=== PATIENT | male | born 1955 | race Caucasian/White ===

== ENCOUNTER 2016-08-28 11:17 | Inpatient (IN) | payer BC ==
[~2016-08-28] VITALS: Ht 172.7 cm; Wt 69.3 kg
[2016-08-28] MEDS ORDERED: GASTROGRAFIN SOLUTION 30ML (Q9963) As Ordered ONE (12:12)
[2016-08-28 12:50] LABS: ALBUMIN 4.1 GM/DL (3.2-5.2); ALBUMIN/GLOBULIN RATIO 1.17 (1.00-1.93); ALKALINE PHOSPHATASE 75 U/L (45-117); ALT/SGPT 29 U/L (12-78); AMYLASE 41 U/L (25-115); ANION GAP 9 MEQ/L (8-16); AST/SGOT 18 U/L (15-37); BILIRUBIN,DIRECT < 0.1 MG/DL (0.0-0.2); BILIRUBIN,TOTAL 0.6 MG/DL (0.2-1.0); BLOOD UREA NITROGEN 19 MG/DL (7-18); CALCIUM LEVEL 9.2 MG/DL (8.5-10.1); CARBON DIOXIDE LEVEL 26 MEQ/L (21-32); CHLORIDE LEVEL 102 MEQ/L (98-107); CREATININE FOR GFR 1.09 MG/DL (0.55-1.02); GLOMERULAR FILTRATION RATE 54.7 (>51); GLUCOSE, FASTING 104 MG/DL (70-105); SODIUM LEVEL 137 MEQ/L (136-145); TOTAL PROTEIN 7.6 GM/DL (6.4-8.2)
[2016-08-28 12:51] LABS: BASO % 0.2 % (0.0-1.0); EOS % 0.1 % (0.0-3.0); LARGE UNSTAINED CELL # 0.1 K/mm3 (0.0-0.4); LARGE UNSTAINED CELL % 1.1 % (0.0-4.0); LYMPH # 1.2 K/mm3 (1.5-4.5); LYMPH % 10.7 % (24.0-44.0); MEAN CORPUSCULAR HEMOGLOBIN 32.4 pg (27.0-33.0); MEAN CORPUSCULAR HGB CONC 33.8 g/dl (32.0-36.5); MEAN CORPUSCULAR VOLUME 96.1 fl (80.0-96.0); MONO # 0.5 K/mm3 (0.0-0.8); MONO % 4.5 % (0.0-5.0); NEUTROPHILS # 9.4 K/mm3 (1.8-7.7); NEUTROPHILS % 83.4 % (36.0-66.0); PLATELET COUNT, AUTOMATED 254 k/mm3 (150-450); WHITE BLOOD COUNT 11.3 K/mm3 (4.0-10.0)
[2016-08-28] MEDS ORDERED: ISOVUE-370 76% 100ML VIAL (Q9967) As Ordered ONE (13:11)
--- NOTE | 2016-08-28 14:32 | REP ---
CT study of the abdomen and pelvis with IV and oral contrast: History: Abdominal pain. CT contrast dose: 100 mL of Isovue [address] findings: Digital boatbuilder supervisor radiograph demonstrates multiple dilated large and small bowel loops in the central abdomen. Axial CT images demonstrate that the lung bases are free of infiltrate. No pleural effusion is seen. There is however a small quantity of ascites visible in the perihepatic region and in the pelvic reflections. The liver and the spleen are normal in size and homogeneous in texture. Gallbladder is unremarkable. No pancreatic abnormality is appreciated. No visible adrenal lesion. Kidneys enhance symmetrically are morphologically intact. Normal caliber aorta is seen. There is diffuse dilation of the large and small intestine with a large quantity of low density stool throughout the large intestine including the descending colon distal to the rectosigmoid colon. In the rectosigmoid colon there is the suggestion of mural thickening and enhancement along with diverticulosis. This may reflect a diverticular or neoplastic stricture. Sigmoidoscopy versus limited barium enema should be considered. There is a distal left colonic obstructive pattern in the bowel gas. No free air is seen. No abscess is observed. No abdominal wall defect is seen. Bone window settings show no bony destructive lesion. Impression: Distal left colon obstruction pattern in the bowel gas. Minimal ascites. 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 Consider sigmoidoscopy versus limited barium enema. No evidence of free air or abscess. Signed by Roque Laird MD 08/28/2016 03:06 P
[2016-08-28] MEDS ORDERED: FLEET ENEMA PR SCH (15:45)
[2016-08-28] MEDS ORDERED: ONDANSETRON 4MG/2ML VIAL (J2405) IV PRN (15:45)
--- NOTE | 2016-08-28 17:08 | EDDOCDS ---
Nurse's Notes [facility] Name: Sylvain Moran Age: 61 yrs Sex: Female : 1955 Arrival Date: 08/28/2016 Time: 11:17 Bed I3 / M3 Private MD: ISABEL LOERA Diagnosis: Other intestinal obstruction-LEFT SIDED, WITH MALIGNANT VS DIVERTICULAR STRICTURE IN RECTOSIGMOID COLON;Other abdominal pain-LEFT SIDED Presentation: 08/28 11:26 Presenting complaint: Patient states: Having some lower abdominal pain intermittently x jo3 2 weeks. Anorexia and intermittent blood in stool. Adult Sepsis Screening: The patient does not have new or worsening altered mentation. Patient's respiratory rate is less than 22. Systolic blood pressure is greater than 100. Patient has a qSOFA score of 0- Negative Sepsis Screen. Suicide/Homicide risk assessment- the patient denies having any suicidal and/or homicidal ideations and does not present with any other emotional, behavioral or mental health complaints. Status: Patient is not a visitor services technician or dependent. Transition of care: patient was not received from another setting of care. 11:26 Acuity: ROSA Level 3 jo3 11:26 Method Of Arrival: Walkin/Carried/Asstd jo3 Triage Assessment: 11:31 General: Appears in no apparent distress, Behavior is appropriate for age, cooperative. jo3 HIV screening NA for this visit Offered previously. Historical: - Allergies: No known drug Allergies; - Home Meds: 1. none - PMHx: Some kind of bowel fistula; - PSHx: Colonoscopy; - Social history: Smoking status: Patient states former smoker of tobacco. No barriers to communication noted, The patient speaks fluent Bengali, Speaks appropriately for age. - Family history: Not pertinent. - : The pt / caregiver states he / she is not on anticoagulants. Home medication list is obtained from the patient. - Exposure Risk Screening:: None identified. Screenin:20 Screening information is obtained from the patient. Fall risk: No risks identified. mcp Assistance ADL's: requires no assistance with activities of daily living. Abuse/DV Screen: The patient / caregiver reports he/she is: not in a situation that causes fear, pain or injury. Nutritional screening: No deficits noted. Advance Directives: There is no active DNR order. home support is adequate. Assessment: 12:20 General: Appears in no apparent distress, Behavior is cooperative. Pain: Location: mcp right lower quadrant and left lower quadrant Pain currently is 5 out of 10 on a pain scale. Neurological: No deficits noted. Respiratory: Airway is patent Respiratory effort is even, unlabored. GI: Abdomen is non- distended Bowel sounds present X 4 quads. Abd is soft X 4 quads. Derm: Skin is pink, warm & dry. 13:10 General: Appears in no apparent distress, Behavior is cooperative. Neurological: No mcp deficits noted. Respiratory: Airway is patent Respiratory effort is even, unlabored. Derm: Skin is pink, warm & dry. 14:03 General: Appears in no apparent distress, ambulated to CT scan and returned , appears mk4 in NAD. Derm: Skin is intact, Skin is pink, warm & dry. 15:30 General: Appears in no apparent distress, DR DASILVA IN [facility] pt. Neurological: mk4 Level of Consciousness is awake, alert, Oriented to person, place, time. GI: Abdomen is non- distended. 16:59 General: Appears in no apparent distress, comfortable, Behavior is cooperative. mcp Neurological: No deficits noted. Respiratory: Airway is patent Respiratory effort is even, unlabored. GI: Abdomen is non- distended Abd is soft X 4 quads. Derm: Skin is pink, warm & dry. Vital Signs: 11:21 BP 137 / 80; Pulse 79; Resp 18; Temp 98.9(O); Pulse Ox 98% on R/A; Weight 64.41 kg (R); elp Height 5 ft. 8 in. (172.72 cm) (R); Pain 4/10; 13:25 BP 153 / 88; Pulse 53; Resp 18; Temp 96.6(O); Pulse Ox 100% on R/A; Pain 3/10; jml1 16:12 BP 141 / 92; Pulse 71; Resp 18; Temp 97.7(TE); Pulse Ox 97% on R/A; Pain 3/10; jml1 11:21 Body Mass Index 21.59 (64.41 kg, 172.72 cm) [facility] Vitals: 11:21 Log In Time: August 28, 2016 at 11:11. [facility] ED Course: 11:18 Patient visited by Shirin Martines PCA. [facility] 11:18 Patient moved to Waiting elp 11:19 ISABEL LOERA is Private Physician. elp 11:22 Patient visited by Shirin Martines PCA. elp 11:22 Patient moved to Pre RCE elp 11:29 Triage Initiated jo3 11:31 Patient visited by Marina Finnegan,ZAK. jo3 11:32 Patient moved to Triage 1 jo3 11:43 [facility] dt4 11:43 Keisha Waller MD is Attending Physician. dt4 11:43 Patient visited by Loretta Pereira PA-C. dt4 12:05 Patient moved to I3 / M3 kcs 12:15 Inserted saline lock: 20 gauge in left antecubital area and blood collected. The mcp patient tolerated the procedure well. Labs drawn. (by ED staff). Sent per order to lab. 12:18 Patient visited by Yulisa Acosta RN. mk4 12:18 Amylase Sent. mk4 12:18 Basic Metabolic Profile Sent. mk4 12:18 CBC with Diff Sent. mk4 12:18 Lipase Sent. mk4 12:18 Liver Profile Sent. mk4 12:21 Patient visited by Chel Jane RN. mcp 12:21 The patient / caregiver is instructed regarding the plan of care and ED course. Patient mcp has correct armband on for positive identification. Placed in gown. Bed in low position. Call light in reach. 12:52 Urinalysis Sent. mcp 12:52 Urine Culture Sent. mcp 12:59 Patient visited by Yulisa Acosta RN. mk4 13:25 Patient visited by Howard Clark. jml1 14:03 Patient visited by Yulisa Acosta RN. mk4 14:35 Patient visited by Yulisa Acosta RN. mk4 14:56 CT ABD & PELVIS: IV and Oral Contrast Returned. EDMS 15:09 Patient visited by Yulisa Acosta RN. mk4 15:10 Patient visited by Chel Jane RN. mcp 15:30 Elver Emmanuel MD is Hospitalizing Provider. dt4 16:12 Patient visited by Howard Clark. jml1 16:25 [facility] Payment Agreement was scanned into [employer] and attached to record. gjb 16:59 No procedures done that require assistance. mcp Administered Medications: 12:18 Drug: NS 0.9% 1000 ml [sodium chloride 0.9 % intravenous solution] Route: IV; Rate: mk4 bolus; Site: left antecubital; 12:18 Drug: Diatrizoate Meglumine & Sodium 10 ml [diatrizoate meglumine and diat.sodium 66 mcp %-10 % oral solution (10 mL)] Route: PO; 12:52 Drug: Diatrizoate Meglumine & Sodium 10 ml [diatrizoate meglumine and diat.sodium 66 mcp %-10 % oral solution (10 mL)] Route: PO; Order Results: Lab Order: Amylase; SPEC'M 08/28/16 12:08 Test: AMYLASE; Value: 41; Range: 25-115; Units: U/L; Status: F Lab Order: Basic Metabolic Profile; SPEC'08/28/16 12:08 Test: GLUCOSE, FASTING; Value: 104; Range: 70-105; Units: MG/DL; Status: F Test: BLOOD UREA NITROGEN; Value: 19; Range: 7-18; Abnormal: Above high normal; Units: MG/DL; Status: F Test: CREATININE FOR GFR; Value: 1.09; Range: 0.55-1.02; Abnormal: Above high normal; Units: MG/DL; Status: F Test: GLOMERULAR FILTRATION RATE; Value: 54.7; Range: >51; Status: F Test: SODIUM LEVEL; Value: 137; Range: 136-145; Units: MEQ/L; Status: F Test: POTASSIUM SERUM; Value: 4.0; Range: 3.5-5.1; Units: MEQ/L; Status: F Test: CHLORIDE LEVEL; Value: 102; Range: 98-107; Units: MEQ/L; Status: F Test: CARBON DIOXIDE LEVEL; Value: 26; Range: 21-32; Units: MEQ/L; Status: F Test: ANION GAP; Value: 9; Range: 8-16; Units: MEQ/L; Status: F Test: CALCIUM LEVEL; Value: 9.2; Range: 8.5-10.1; Units: MG/DL; Status: F Test Note: ; Units are mL/min/1.73 m2 Chronic Kidney Disease Staging per NKF: Stage I & II GFR >=60 Normal to Mildly Decreased Stage III GFR 30-59 Moderately Decreased Stage IV GFR 15-29 Severely Decreased Stage V GFR <15 Very Little GFR Left ESRD GFR <15 on TRACK REPAIRER HELPER Lab Order: CBC with Diff; SPEC'M 08/28/16 12:08 Test: WHITE BLOOD COUNT; Value: 11.3; Range: 4.0-10.0; Abnormal: Above high normal; Units: K/mm3; Status: F Test: RED BLOOD COUNT; Value: 4.71; Range: 4.00-5.40; Units: M/mm3; Status: F Test: HEMOGLOBIN; Value: 15.3; Range: 12.0-16.0; Units: g/dl; Status: F Test: HEMATOCRIT; Value: 45.3; Range: 36.0-47.0; Units: %; Status: F Test: MEAN CORPUSCULAR VOLUME; Value: 96.1; Range: 80.0-96.0; Abnormal: Above high normal; Units: fl; Status: F Test: MEAN CORPUSCULAR HEMOGLOBIN; Value: 32.4; Range: 27.0-33.0; Units: pg; Status: F Test: MEAN CORPUSCULAR HGB CONC; Value: 33.8; Range: 32.0-36.5; Units: g/dl; Status: F Test: RED CELL DISTRIBUTION WIDTH; Value: 12.0; Range: 11.5-14.5; Units: %; Status: F Test: PLATELET COUNT, AUTOMATED; Value: 254; Range: 150-450; Units: k/mm3; Status: F Test: NEUTROPHILS %; Value: 83.4; Range: 36.0-66.0; Abnormal: Above high normal; Units: %; Status: F Test: LYMPH %; Value: 10.7; Range: 24.0-44.0; Abnormal: Below low normal; Units: %; Status: F Test: MONO %; Value: 4.5; Range: 0.0-5.0; Units: %; Status: F Test: EOS %; Value: 0.1; Range: 0.0-3.0; Units: %; Status: F Test: BASO %; Value: 0.2; Range: 0.0-1.0; Units: %; Status: F Test: LARGE UNSTAINED CELL %; Value: 1.1; Range: 0.0-4.0; Units: %; Status: F Test: NEUTROPHILS #; Value: 9.4; Range: 1.8-7.7; Abnormal: Above high normal; Units: K/mm3; Status: F Test: LYMPH #; Value: 1.2; Range: 1.5-4.5; Abnormal: Below low normal; Units: K/mm3; Status: F Test: MONO #; Value: 0.5; Range: 0.0-0.8; Units: K/mm3; Status: F Test: EOS #; Value: 0.0; Range: 0.0-0.50; Units: K/mm3; Status: F Test: BASO #; Value: 0.0; Range: 0.0-0.2; Units: K/mm3; Status: F Test: LARGE UNSTAINED CELL #; Value: 0.1; Range: 0.0-0.4; Units: K/mm3; Status: F Lab Order: Lipase; [facility] 08/28/16 12:08 Test: LIPASE; Value: 104; Range: 73-393; Units: U/L; Status: F Lab Order: Liver Profile; [facility] 08/28/16 12:08 Test: AST/SGOT; Value: 18; Range: 15-37; Units: U/L; Status: F Test: ALT/SGPT; Value: 29; Range: 12-78; Units: U/L; Status: F Test: ALKALINE PHOSPHATASE; Value: 75; Range: 45-117; Units: U/L; Status: F Test: BILIRUBIN,TOTAL; Value: 0.6; Range: 0.2-1.0; Units: MG/DL; Status: F Test: BILIRUBIN,DIRECT; Value: < 0.1; Range: 0.0-0.2; Units: MG/DL; Status: F Test: TOTAL PROTEIN; Value: 7.6; Range: 6.4-8.2; Units: GM/DL; Status: F Test: ALBUMIN; Value: 4.1; Range: 3.2-5.2; Units: GM/DL; Status: F Test: ALBUMIN/GLOBULIN RATIO; Value: 1.17; Range: 1.00-1.93; Status: F Lab Order: Urinalysis; SPEC'M 08/28/16 12:08 Test: APPEARANCE, URINE; Value: HAZY; Range: CLEAR; Status: F Test: COLOR, URINE; Value: YELLOW; Range: YELLOW; Status: F Test: PH,URINE; Value: 5.0; Range: 5.0-9.0; Units: UNITS; Status: F Test: SPECIFIC GRAVITY URINE AUTO; Value: 1.029; Range: 1.002-1.035; Status: F Test: PROTEIN, URINE AUTO; Value: 1+; Range: NEGATIVE; Abnormal: Above high normal; Units: mg/dL; Status: F Test: GLUCOSE, URINE (UA) AUTO; Value: NEGATIVE; Range: NEGATIVE; Units: mg/dL; Status: F Test: KETONE, URINE AUTO; Value: 2+; Range: NEGATIVE; Abnormal: Above high normal; Units: mg/dL; Status: F Test: UROBILINOGEN, URINE AUTO; Value: 2.0; Range: 0.0-2.0; Abnormal: Above high normal; Units: mg/dL; Status: F Test: BILIRUBIN, URINE AUTO; Value: NEGATIVE; Range: NEGATIVE; Status: F Test: NITRITE, URINE AUTO; Value: NEGATIVE; Range: NEGATIVE; Status: F Test: LEUKOCYTE ESTERASE, URINE AUTO; Value: NEGATIVE; Range: NEGATIVE; Status: F Test: BLOOD, URINE BLOOD; Value: NEGATIVE; Range: NEGATIVE; Status: F Test: WBC, URINE AUTO; Value: 1; Range: 0-3; Units: /HPF; Status: F Test: RBC, URINE AUTO; Value: 6; Range: 0-3; Abnormal: Above high normal; Units: /HPF; Status: F Test: BACTERIA, URINE AUTO; Value: NEGATIVE; Range: NEGATIVE; Status: F Test: SQUAMOUS EPITHELIAL CELL UR AU; Value: 0; Range: 0-6; Units: /HPF; Status: F Test: MUCUS, URINE; Value: SMALL; Range: NEGATIVE; Status: F Test: HYALINE CAST, URINE AUTO; Value: 1; Range: 0-1; Units: /LPF; Status: F Lab Order: CRP; SPEC'M 08/28/16 12:08 Test: C REACTIVE PROTEIN QUANTITATIV; Value: 0.51; Range: 0.00-0.30; Abnormal: Above high normal; Units: MG/DL; Status: F Radiology Order: CT ABD & PELVIS: IV and Oral Contrast Test: CT ABD & PELVIS: IV and Oral Contrast REASON FOR EXAMINATION: Abdomen Pain; CT study of the abdomen and pelvis with IV and oral contrast:; ; History: Abdominal pain.; ; CT contrast dose: 100 mL of Isovue 370 is administered intravenously.; ; CT findings: Digital hand lens polisher radiograph demonstrates multiple dilated large and; small bowel loops in the central abdomen. Axial CT images demonstrate that the; lung bases are free of infiltrate. No pleural effusion is seen. There is; however a small quantity of ascites visible in the perihepatic region and in the; pelvic reflections.; ; The liver and the spleen are normal in size and homogeneous in texture.; Gallbladder is unremarkable. No pancreatic abnormality is appreciated. No; visible adrenal lesion. Kidneys enhance symmetrically are morphologically; intact. Normal caliber aorta is seen.; ; There is diffuse dilation of the large and small intestine with a large quantity; of low density stool throughout the large intestine including the descending; colon distal to the rectosigmoid colon. In the rectosigmoid colon there is the; suggestion of mural thickening and enhancement along with diverticulosis. This; may reflect a diverticular or neoplastic stricture. Sigmoidoscopy versus limited; barium enema should be considered. There is a distal left colonic obstructive; pattern in the bowel gas. No free air is seen. No abscess is observed. No; abdominal wall defect is seen. Bone window settings show no bony destructive; lesion.; ; Impression:; ; Distal left colon obstruction pattern in the bowel gas. Minimal ascites.; Malignant versus diverticular stricture rectosigmoid colon. Consider; sigmoidoscopy versus limited barium enema. No evidence of free air or abscess.; ; ; Signed by; Roque Laird MD 08/28/2016 03:06 P; Outcome: 15:32 Decision to Hospitalize by Provider. dt4 16:59 Discharge Assessment: patient administered narcotics - no. The following High Risk [facility] Discharge criteria are identified: None. Admitted to Med/Surg accompanied by tech, via wheelchair, with chart. Condition: stable. CT Study completed. Property :Personal belongings accompany Pt. 17:07 Patient left the ED. [facility] Signatures: Dispatcher [facility] Abbey Dent RN RN kcs Peters, Mary, RN RN [facility] Marina Finnegan RN RN jo3 Howard Clark [email or web address] Shirin Martines, FUNERAL LIMOUSINE DRIVER FUNERAL LIMOUSINE DRIVER mehulp Yulisa Acosta RN RN mk4 Loretta Pereira, NAOMY PAJoseluis [email or web address] Zuleika Gerber Corrections: (The following items were deleted from the chart) : General: Appears in no apparent distress, comfortable, Behavior is appropriate jo3 for age, cooperative, jo3 : Neurological: Level of Consciousness is awake, alert, Oriented to person, place, jo3 time, jo3 : Respiratory: Airway is patent Respiratory effort is even, unlabored, jo3 jo3 : Derm: Skin is pink, warm & dry. jo3 jo3 MTDD
--- NOTE | 2016-08-28 17:08 | EDDOCDS ---
Physician Documentation [facility] Name: Sylvain Moran Age: 61 yrs Sex: Female : 1955 Arrival Date: 08/28/2016 Time: 11:17 Bed I3 / M3 Private MD: ISABEL LOERA Disposition: 08/28/16 15:32 Hospitalization ordered by Elver Emmanuel for Inpatient Admission. 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 - Bed requested for 4 [place]. - Status is Inpatient Admission. mcp - Condition is Stable. - Problem is new. - Symptoms are unchanged. Historical: - Allergies: No known drug Allergies; - Home Meds: 1. none - PMHx: Some kind of bowel fistula; - PSHx: Colonoscopy; - Social history: Smoking status: Patient states former smoker of tobacco. No barriers to communication noted, The patient speaks fluent Norwegian, Speaks appropriately for age. - Family history: Not pertinent. - : The pt / caregiver states he / she is not on anticoagulants. Home medication list is obtained from the patient. - Exposure Risk Screening:: None identified. Vital Signs: 08/28 11:21 BP 137 / 80; Pulse 79; Resp 18; Temp 98.9(O); Pulse Ox 98% on R/A; Weight 64.41 kg / elp 142 lbs (R); Height 5 ft. 8 in. (172.72 cm) (R); Pain 4/10; 13:25 BP 153 / 88; Pulse 53; Resp 18; Temp 96.6(O); Pulse Ox 100% on R/A; Pain 3/10; jml1 16:12 BP 141 / 92; Pulse 71; Resp 18; Temp 97.7(TE); Pulse Ox 97% on R/A; Pain 3/10; jml1 11:21 Body Mass Index 21.59 (64.41 kg, 172.72 cm) elp MDM: 12:03 NS 0.9% 1000 ml IV at bolus once ordered. dt4 12:03 IV Saline Lock ordered. dt4 12:03 Undress patient appropriately for examination ordered. dt4 12:04 CT ABD & PELVIS: IV and Oral Contrast Ordered. EDMS 12:04 Amylase Ordered. EDMS 12:04 Basic Metabolic Profile Ordered. EDMS 12:04 CBC with Diff Ordered. EDMS 12:04 Lipase Ordered. EDMS 12:04 Liver Profile Ordered. EDMS 12:04 Urinalysis Ordered. EDMS 12:04 CRP Ordered. EDMS 12:04 Urine Culture Ordered. EDMS 12:05 NOTHING BY MOUTH+DIET ordered. EDMS 12:17 Diatrizoate Meglumine & Sodium Liquid 10 ml PO once; mix in 290cc of water ordered. mcp 12:17 Diatrizoate Meglumine & Sodium Liquid 10 ml PO once; mix in 290cc of water ordered. [facility] 14:44 BED REQUEST+ADM ordered. EDMS 15:53 Barium Enema Ordered. EDMS 15:53 Admission / Observation Status ordered. EDMS 15:54 NPO DIET ordered. EDMS 16:25 [facility] Payment Agreement was scanned into [employer] and attached to record. [facility] 16:25 Financial registration complete. gjb Administered Medications: 12:18 Drug: NS 0.9% 1000 ml [sodium chloride 0.9 % intravenous solution] Route: IV; Rate: mk4 bolus; Site: left antecubital; 12:18 Drug: Diatrizoate Meglumine & Sodium 10 ml [diatrizoate meglumine and diat.sodium 66 mcp %-10 % oral solution (10 mL)] Route: PO; 12:52 Drug: Diatrizoate Meglumine & Sodium 10 ml [diatrizoate meglumine and diat.sodium 66 mcp %-10 % oral solution (10 mL)] Route: PO; Signatures: Dispatcher [facility] Chel Jane RN Marina Ceballos mcp, RN RN jo3 Loretta Pereira, PA-C PA-C [email or web address] Sean Tidwell RN RN mts Beck, Gabriela gjb King, Margaret RN mk4 The chart was reviewed and I authenticate all verbal orders and agree with the evaluation and treatment provided.Attachments: 16:25 [facility] Payment Agreement gj MTDD
[2016-08-28 17:15] VITALS: BP 158/78
[2016-08-28] MEDS: LR 1,000 ML IV SCH (17:45)
[2016-08-28] MEDS: CIPROFLOXACIN 400 MG in APPROPRIATE DILUENT 1 EA IV SCH (17:46)
[2016-08-28] MEDS: MORPHINE 4 MG/ML 1ML SYRINGE IV PRN (17:47)
--- NOTE | 2016-08-28 17:50 | HPE ---
DATE OF ADMISSION: 08/28/2016 CHIEF COMPLAINT: Abdominal pain, abdominal fullness. HISTORY OF PRESENT ILLNESS: Mr. Moran is a 61-year-old gentleman who has recently transferred here, taking care of his mom. He originally lives by the [facility]. He reports a 1 week episode of abdominal fullness, no appetite, crampy abdominal pain centered periumbilically and supraumbilically going towards his pelvis. He is not really complaining of nausea though he does not feel like eating because of the cramps and the abdominal fullness. Reports feeling dehydrated and having lost about 3 pounds in a week's time due to not being able to eat or drink. He tells me that his father has Crohn's disease. When he was 44 he was having some abdominal cramping as well as occasional bloody stools which he reports finding in the toilet paper. He had a colonoscopy but was not able to be completed due to possible stricture. This was not followed up. In 2012 he saw a death claim clerk for similar symptoms. He told them about that episode. They did a barium enema and a possible stricture or fistula was discussed. He was advised surgery at that time but since he was not really that symptomatic he did not go through with that. For the past couple weeks he was having problems, he contacted his primary care doctor, likewise his death claim clerk, and referred him to a surgeon in [place] and he is actually scheduled to see him on 09/09/2016. He came here trying to take care of his mom, who is sick, when his symptoms worsened. ALLERGIES: No reported drug allergies. HOME MEDICATIONS: None. PAST MEDICAL HISTORY: As mentioned in history of present illness (HPI). No chronic medical problems. PAST SURGICAL HISTORY: Of only a colonoscopy and left inguinal hernia repair. SOCIAL HISTORY: Light cigarette smoker, about six a day, non-filtered. He has decided to stop last week when his symptoms were worsening and he vows to continue to stop smoking. He has only occasional alcohol intake, mostly wine. Denies recreational drug use. FAMILY HISTORY: As mentioned, Crohn's disease. No history of colorectal malignancy. EXPOSURE HISTORY: None. No sick exposure. REVIEW OF SYSTEMS: The patient otherwise healthy. Denies any fevers or chills. Denies any intermittent or chronic headaches, seizures, stroke. The patient denies any significant chest discomfort and effort, paroxysmal nocturnal dyspnea, orthopnea. Denies any chronic cough or colds, shortness of breath on effort. Gastrointestinal symptoms enumerated in the HPI. Denies dysuria, hematuria, nocturia. The patient denies any polydipsia, polyphagia or polyuria. Denies any history of diabetes or other endocrine problems. Denies any bleeding or clotting disorder. Denies any severe psychiatric impairment. The patient reports healthy and active, runs three miles a day, does yoga 5 days a week. His vital signs on arrival in the emergency department (ED), blood pressure of 137/80, pulse rate of 79, respiratory of 18, temperature of 98.9, pulse oximetry 98% on room air. Weight 64 kg, height 172 cm, pain rated as 4/10 on arrival, BMI is 21.59. EXAMINATION: The patient is seen, fairly well built person, does not seem to be chronically ill. Has some mild discomfort but still able to move around comfortably. Burps here and there and stops talking due to most possible waves of nausea. Skin is warm and dry. Normocephalic, atraumatic. Has pink palpebral conjunctivae. Anicteric sclerae. Lips appear dry. Neck is supple. No thyromegaly. No lymphadenopathy. No chest wall abnormalities. Lung sounds clear to auscultation bilaterally, no wheezing appreciated. Heart rate and rhythm are regular with no murmurs. Lungs are clear to auscultation bilaterally. No wheezing appreciated. Abdominal exam shows moderate amount of distension, tympanitic to percussion. No umbilical or herniations appreciated from the left groin scar. No surgical scar noted. No hepatosplenomegaly. Minimally tender on palpation, mainly in the suprapubic area. No rebound or guarding. Extremities show no deformities, edema, or cyanosis. LABORATORY DATA: White cell count 11.3, hemoglobin 15.3, hematocrit 45.3, platelet count is 254, neutrophils are 83%. Chemistry: Sodium 137, potassium 4.0, chloride is 102, CO2 is 26, BUN of 19, creatinine is 1.09, calcium 10.2. LFTs are all normal. AST is 18, ALT of 29, albumin 4.1, amylase of 41, lipase of 104. Urinalysis essentially negative except for urine ketones 2+, and urine protein 1+. IMAGING STUDIES: Contrast CT of the abdomen and pelvis shows distal left colon obstruction pattern in the bowel gas, minimal ascites, malignant versus diverticular stricture in rectosigmoid colon. No evidence of free air or abscess. IMPRESSION: Left colon obstruction, seems to be chronic and progressive, either from inflammation, i.e., Crohn's disease, infection, diverticular disease or malignancy. The patient will be admitted in the hospital. He seems to be a little dehydrated. He has got some mildly elevated BUN and creatinine. Will continue IV fluid hydration of lactated Ringer's at 150 mL/hour. I will put him on Cipro and Flagyl for possible diverticulitis, though this seems to be a more chronic diverticular process. He does not look septic to suggest any active diverticulitis. We will set him up for a limited barium enema tomorrow to define the area of stricture. I discussed with him his options which includes possible colonoscopy with stenting to relieve the obstruction and get him ready for bowel preparation for surgery, colostomy and workup, which may include colonoscopy and later on interval surgery, or doing the resection right now with an end colostomy. After full discussion, we agreed on performing a barium enema tomorrow, possibly doing the colostomy to improve the blockage and work him up for the etiology of the blockage and eventually performing interval resection. All his questions were addressed at this time. The patient is in agreement with our plan of therapy.
[2016-08-28] MEDS: metroNIDAZOLE 500 MG in APPROPRIATE DILUENT 1 EA IV SCH (20:11)
[2016-08-28] MEDS: PERCOCET 5MG/325MG TAB PO PRN (20:41)
[2016-08-28 21:10] VITALS: BP 117/83
[2016-08-29] MEDS: LR 1,000 ML IV SCH ×4 (01:15→18:24)
[2016-08-29] MEDS: metroNIDAZOLE 500 MG in APPROPRIATE DILUENT 1 EA IV SCH ×3 (03:56→19:43)
[2016-08-29] MEDS: PERCOCET 5MG/325MG TAB PO PRN ×3 (04:05→17:56)
[2016-08-29 05:05] VITALS: BP 126/71
[2016-08-29] MEDS: CIPROFLOXACIN 400 MG in APPROPRIATE DILUENT 1 EA IV SCH ×2 (05:43→17:07)
[2016-08-29 06:30] LABS: BASO % 0.4 % (0.0-1.0); EOS # 0.1 K/mm3 (0.0-0.50); EOS % 1.6 % (0.0-3.0); LARGE UNSTAINED CELL # 0.2 K/mm3 (0.0-0.4); LARGE UNSTAINED CELL % 2.4 % (0.0-4.0); LYMPH # 2.1 K/mm3 (1.5-4.5); LYMPH % 24.2 % (24.0-44.0); MEAN CORPUSCULAR HEMOGLOBIN 32.4 pg (27.0-33.0); MEAN CORPUSCULAR HGB CONC 33.4 g/dl (32.0-36.5); MEAN CORPUSCULAR VOLUME 96.9 fl (80.0-96.0); MONO # 0.4 K/mm3 (0.0-0.8); MONO % 4.6 % (0.0-5.0); NEUTROPHILS # 5.8 K/mm3 (1.8-7.7); PLATELET COUNT, AUTOMATED 196 k/mm3 (150-450); RED CELL DISTRIBUTION WIDTH 12.2 % (11.5-14.5); WHITE BLOOD COUNT 8.7 K/mm3 (4.0-10.0)
[2016-08-29 06:44] LABS: ANION GAP 7 MEQ/L (8-16); BLOOD UREA NITROGEN 17 MG/DL (7-18); CALCIUM LEVEL 8.2 MG/DL (8.5-10.1); CARBON DIOXIDE LEVEL 29 MEQ/L (21-32); CHLORIDE LEVEL 105 MEQ/L (98-107); CREATININE FOR GFR 1.04 MG/DL (0.70-1.30); GLOMERULAR FILTRATION RATE > 60.0 (>56); GLUCOSE, FASTING 87 MG/DL (70-105); POTASSIUM SERUM 4.5 MEQ/L (3.5-5.1); SODIUM LEVEL 141 MEQ/L (136-145)
[2016-08-29] MEDS: PANTOPRAZOLE 40MG INJ (PROTONIX) (C9113) IV SCH (08:54)
[2016-08-29] MEDS: ENOXAPARIN 40 MG/0.4 ML SYRINGE (J1650) SC SCH (08:54)
[2016-08-29] MEDS ORDERED: GASTROGRAFIN SOLUTION 30ML (Q9963) As Ordered ONE ×2 (11:34)
--- NOTE | 2016-08-29 13:26 | REP ---
GASTROGRAFIN ENEMA: The procedure was performed under the personal supervision of Dr. Laird. The images were reviewed with Dr. Laird. A 50/50 solution of Gastrografin and water was instilled in the colon in a retrograde flow. In the sigmoid colon there is a 3.7 cm napkin ring lesion consistent with malignancy. There is obstruction proximal to the lesion. IMPRESSION: In the sigmoid colon there is a 3.7 cm napkin ring lesion consistent with malignancy. There is obstruction proximal to the lesion. 1 minute and 53 seconds of fluoroscopy time was utilized for this procedure. Reviewed by SYED Shirley 08/29/2016 01:50 PEdited and Signed by Roque Laird MD 08/29/2016 07:22 P
[2016-08-29 14:00] VITALS: BP 133/64
[2016-08-29] MEDS: MORPHINE 4 MG/ML 1ML SYRINGE IV PRN (15:51)
[2016-08-29 22:00] VITALS: BP 155/86
[2016-08-30] MEDS: LR 1,000 ML IV SCH ×4 (01:04→22:43)
[2016-08-30] MEDS: PERCOCET 5MG/325MG TAB PO PRN ×3 (01:51→19:55)
[2016-08-30] MEDS: metroNIDAZOLE 500 MG in APPROPRIATE DILUENT 1 EA IV SCH ×3 (03:16→19:50)
[2016-08-30] MEDS: CIPROFLOXACIN 400 MG in APPROPRIATE DILUENT 1 EA IV SCH ×2 (05:00→17:07)
[2016-08-30 06:00] VITALS: BP 126/78
[2016-08-30 06:01] LABS: BASO % 0.4 % (0.0-1.0); EOS # 0.1 K/mm3 (0.0-0.50); EOS % 1.9 % (0.0-3.0); LARGE UNSTAINED CELL # 0.2 K/mm3 (0.0-0.4); LARGE UNSTAINED CELL % 2.6 % (0.0-4.0); LYMPH # 1.7 K/mm3 (1.5-4.5); LYMPH % 24.1 % (24.0-44.0); MEAN CORPUSCULAR HEMOGLOBIN 32.1 pg (27.0-33.0); MEAN CORPUSCULAR HGB CONC 32.2 g/dl (32.0-36.5); MEAN CORPUSCULAR VOLUME 99.8 fl (80.0-96.0); MONO # 0.4 K/mm3 (0.0-0.8); MONO % 5.8 % (0.0-5.0); NEUTROPHILS # 4.6 K/mm3 (1.8-7.7); NEUTROPHILS % 65.2 % (36.0-66.0); PLATELET COUNT, AUTOMATED 187 k/mm3 (150-450); RED CELL DISTRIBUTION WIDTH 12.2 % (11.5-14.5)
[2016-08-30 06:21] LABS: ANION GAP 10 MEQ/L (8-16); BLOOD UREA NITROGEN 15 MG/DL (7-18); CALCIUM LEVEL 8.4 MG/DL (8.5-10.1); CARBON DIOXIDE LEVEL 29 MEQ/L (21-32); CHLORIDE LEVEL 100 MEQ/L (98-107); CREATININE FOR GFR 0.99 MG/DL (0.70-1.30); GLOMERULAR FILTRATION RATE > 60.0 (>56); GLUCOSE, FASTING 74 MG/DL (70-105); POTASSIUM SERUM 3.9 MEQ/L (3.5-5.1); SODIUM LEVEL 139 MEQ/L (136-145)
[2016-08-30] MEDS: ENOXAPARIN 40 MG/0.4 ML SYRINGE (J1650) SC SCH (08:29)
[2016-08-30] MEDS: PANTOPRAZOLE 40MG INJ (PROTONIX) (C9113) IV SCH (08:29)
[2016-08-30] MEDS: FLEET ENEMA PR SCH ×2 (11:06→20:39)
[2016-08-30 14:00] VITALS: BP 127/69
--- NOTE | 2016-08-30 18:08 | EDDOCDS ---
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 Anorexia and intermittent blood in stool. Adult Sepsis Screening: The patient does not have new or worsening altered mentation. Patient's respiratory rate is less than 22. Systolic blood pressure is greater than 100. Patient has a qSOFA score of 0- Negative Sepsis Screen. Suicide/Homicide risk assessment- the patient denies having any suicidal and/or homicidal ideations and does not present with any other emotional, behavioral or mental health complaints. 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 Transition of care: patient was not received from another setting of care. 11:26 Acuity: ROSA Level 3 jo3 11:26 Method Of Arrival: Walkin/Carried/Asstd jo3 Triage Assessment: 11:31 General: Appears in no apparent distress, Behavior is appropriate for age, cooperative. jo3 HIV screening NA for this visit Offered previously. Historical: - Allergies: No known drug Allergies; - Home Meds: 1. none - PMHx: Some kind of bowel fistula; - PSHx: Colonoscopy; - Social history: Smoking status: Patient states former smoker of tobacco. No barriers to communication noted, The patient speaks fluent Danish, Speaks appropriately for age. - Family history: Not pertinent. - : The pt / caregiver states he / she is not on anticoagulants. Home medication list is obtained from the patient. - Exposure Risk Screening:: None identified. Screenin:20 Screening information is obtained from the patient. Fall risk: No risks identified. mcp Assistance ADL's: requires no assistance with activities of daily living. Abuse/DV Screen: The patient / caregiver reports he/she is: not in a situation that causes fear, pain or injury. Nutritional screening: No deficits noted. Advance Directives: There is no active DNR order. home support is adequate. Assessment: 12:20 General: Appears in no apparent distress, Behavior is cooperative. Pain: Location: mcp right lower quadrant and left lower quadrant Pain currently is 5 out of 10 on a pain scale. Neurological: No deficits noted. Respiratory: Airway is patent Respiratory effort is even, unlabored. GI: Abdomen is non- distended Bowel sounds present X 4 quads. Abd is soft X 4 quads. Derm: Skin is pink, warm & dry. 13:10 General: Appears in no apparent distress, Behavior is cooperative. Neurological: No mcp deficits noted. Respiratory: Airway is patent Respiratory effort is even, unlabored. Derm: Skin is pink, warm & dry. 14:03 General: Appears in no apparent distress, ambulated to CT scan and returned , appears mk4 in NAD. Derm: Skin is intact, Skin is pink, warm & dry. 15:30 General: Appears in no apparent distress, DR DASILVA [facility] pt. Neurological: mk4 Level of Consciousness is awake, alert, Oriented to person, place, time. GI: Abdomen is non- distended. 16:59 General: Appears in no apparent distress, comfortable, Behavior is cooperative. mcp Neurological: No deficits noted. Respiratory: Airway is patent Respiratory effort is even, unlabored. GI: Abdomen is non- distended Abd is soft X 4 quads. Derm: Skin is pink, warm & dry. Vital Signs: 11:21 BP 137 / 80; Pulse 79; Resp 18; Temp 98.9(O); Pulse Ox 98% on R/A; Weight 64.41 kg (R); elp Height 5 ft. 8 in. (172.72 cm) (R); Pain 4/10; 13:25 BP 153 / 88; Pulse 53; Resp 18; Temp 96.6(O); Pulse Ox 100% on R/A; Pain 3/10; jml1 16:12 BP 141 / 92; Pulse 71; Resp 18; Temp 97.7(TE); Pulse Ox 97% on R/A; Pain 3/10; jml1 11:21 Body Mass Index 21.59 (64.41 kg, 172.72 cm) [facility] Vitals: 11:21 Log In Time: August 28, 2016 at 11:11. [facility] ED Course: 11:18 Patient visited by Shirin Martines PCA. [facility] 11:18 Patient moved to Waiting elp 11:19 ISABEL LOERA is Private Physician. elp 11:22 Patient visited by Shirin Martines PCA. elp 11:22 Patient moved to Pre RCE elp 11:29 Triage Initiated jo3 11:31 Patient visited by Marina Finnegan,ZAK. jo3 11:32 Patient moved to Triage 1 jo3 11:43 [facility] dt4 11:43 Keisha Waller MD is Attending Physician. dt4 11:43 Patient visited by Loretta Pereira PA-C. dt4 12:05 Patient moved to I3 / M3 kcs 12:15 Inserted saline lock: 20 gauge in left antecubital area and blood collected. The [facility] patient tolerated the procedure well. Labs drawn. (by ED staff). Sent per order to lab. 12:18 Patient visited by Yulisa Acosta RN. mk4 12:18 Amylase Sent. mk4 12:18 Basic Metabolic Profile Sent. mk4 12:18 CBC with Diff Sent. mk4 12:18 Lipase Sent. mk4 12:18 Liver Profile Sent. mk4 12:21 Patient visited by Chel Jane RN. mcp 12:21 The patient / caregiver is instructed regarding the plan of care and ED course. Patient mcp has correct armband on for positive identification. Placed in gown. Bed in low position. Call light in reach. 12:52 Urinalysis Sent. mcp 12:52 Urine Culture Sent. mcp 12:59 Patient visited by Yulisa Acosta RN. mk4 13:25 Patient visited by Howard Clark. jml1 14:03 Patient visited by Yulisa Acosta RN. mk4 14:35 Patient visited by Yulisa Acosta RN. mk4 14:56 CT ABD & PELVIS: IV and Oral Contrast Returned. EDMS 15:09 Patient visited by Yulisa Acosta RN. mk4 15:10 Patient visited by Chel Jane RN. mcp 15:30 Elver Emmaunel MD is Hospitalizing Provider. dt4 16:12 Patient visited by Howard Clark. jml1 16:25 [facility] Payment Agreement was scanned into [employer] and attached to record. gjb 16:59 No procedures done that require assistance. [facility] 08/29 11:10 T-Sheet-- Draft Copy was scanned into [employer] and attached to record. gb Administered Medications: 08/28 12:18 Drug: NS 0.9% 1000 ml [sodium chloride 0.9 % intravenous solution] Route: IV; Rate: mk4 bolus; Site: left antecubital; 12:18 Drug: Diatrizoate Meglumine & Sodium 10 ml [diatrizoate meglumine and diat.sodium 66 mcp %-10 % oral solution (10 mL)] Route: PO; 12:52 Drug: Diatrizoate Meglumine & Sodium 10 ml [diatrizoate meglumine and diat.sodium 66 mcp %-10 % oral solution (10 mL)] Route: PO; Order Results: Lab Order: Amylase; SPEC'M 08/28/16 12:08 Test: AMYLASE; Value: 41; Range: 25-115; Units: U/L; Status: F Lab Order: Basic Metabolic Profile; SPEC'M 08/28/16 12:08 Test: GLUCOSE, FASTING; Value: 104; Range: 70-105; Units: MG/DL; Status: F Test: BLOOD UREA NITROGEN; Value: 19; Range: 7-18; Abnormal: Above high normal; Units: MG/DL; Status: F Test: CREATININE FOR GFR; Value: 1.09; Range: 0.55-1.02; Abnormal: Above high normal; Units: MG/DL; Status: F Test: GLOMERULAR FILTRATION RATE; Value: 54.7; Range: >51; Status: F Test: SODIUM LEVEL; Value: 137; Range: 136-145; Units: MEQ/L; Status: F Test: POTASSIUM SERUM; Value: 4.0; Range: 3.5-5.1; Units: MEQ/L; Status: F Test: CHLORIDE LEVEL; Value: 102; Range: 98-107; Units: MEQ/L; Status: F Test: CARBON DIOXIDE LEVEL; Value: 26; Range: 21-32; Units: MEQ/L; Status: F Test: ANION GAP; Value: 9; Range: 8-16; Units: MEQ/L; Status: F Test: CALCIUM LEVEL; Value: 9.2; Range: 8.5-10.1; Units: MG/DL; Status: F Test Note: ; Units are mL/min/1.73 m2 Chronic Kidney Disease Staging per NKF: Stage I & II GFR >=60 Normal to Mildly Decreased Stage III GFR 30-59 Moderately Decreased Stage IV GFR 15-29 Severely Decreased Stage V GFR <15 Very Little GFR Left ESRD GFR <15 on [facility] Lab Order: CBC with Diff; SPEC'Paulette 08/28/16 12:08 Test: WHITE BLOOD COUNT; Value: 11.3; Range: 4.0-10.0; Abnormal: Above high normal; Units: K/mm3; Status: F Test: RED BLOOD COUNT; Value: 4.71; Range: 4.00-5.40; Units: M/mm3; Status: F Test: HEMOGLOBIN; Value: 15.3; Range: 12.0-16.0; Units: g/dl; Status: F Test: HEMATOCRIT; Value: 45.3; Range: 36.0-47.0; Units: %; Status: F Test: MEAN CORPUSCULAR VOLUME; Value: 96.1; Range: 80.0-96.0; Abnormal: Above high normal; Units: fl; Status: F Test: MEAN CORPUSCULAR HEMOGLOBIN; Value: 32.4; Range: 27.0-33.0; Units: pg; Status: F Test: MEAN CORPUSCULAR HGB CONC; Value: 33.8; Range: 32.0-36.5; Units: g/dl; Status: F Test: RED CELL DISTRIBUTION WIDTH; Value: 12.0; Range: 11.5-14.5; Units: %; Status: F Test: PLATELET COUNT, AUTOMATED; Value: 254; Range: 150-450; Units: k/mm3; Status: F Test: NEUTROPHILS %; Value: 83.4; Range: 36.0-66.0; Abnormal: Above high normal; Units: %; Status: F Test: LYMPH %; Value: 10.7; Range: 24.0-44.0; Abnormal: Below low normal; Units: %; Status: F Test: MONO %; Value: 4.5; Range: 0.0-5.0; Units: %; Status: F Test: EOS %; Value: 0.1; Range: 0.0-3.0; Units: %; Status: F Test: BASO %; Value: 0.2; Range: 0.0-1.0; Units: %; Status: F Test: LARGE UNSTAINED CELL %; Value: 1.1; Range: 0.0-4.0; Units: %; Status: F Test: NEUTROPHILS #; Value: 9.4; Range: 1.8-7.7; Abnormal: Above high normal; Units: K/mm3; Status: F Test: LYMPH #; Value: 1.2; Range: 1.5-4.5; Abnormal: Below low normal; Units: K/mm3; Status: F Test: MONO #; Value: 0.5; Range: 0.0-0.8; Units: K/mm3; Status: F Test: EOS #; Value: 0.0; Range: 0.0-0.50; Units: K/mm3; Status: F Test: BASO #; Value: 0.0; Range: 0.0-0.2; Units: K/mm3; Status: F Test: LARGE UNSTAINED CELL #; Value: 0.1; Range: 0.0-0.4; Units: K/mm3; Status: F Lab Order: Lipase; [facility] 08/28/16 12:08 Test: LIPASE; Value: 104; Range: 73-393; Units: U/L; Status: F Lab Order: Liver Profile; [facility] 08/28/16 12:08 Test: AST/SGOT; Value: 18; Range: 15-37; Units: U/L; Status: F Test: ALT/SGPT; Value: 29; Range: 12-78; Units: U/L; Status: F Test: ALKALINE PHOSPHATASE; Value: 75; Range: 45-117; Units: U/L; Status: F Test: BILIRUBIN,TOTAL; Value: 0.6; Range: 0.2-1.0; Units: MG/DL; Status: F Test: BILIRUBIN,DIRECT; Value: < 0.1; Range: 0.0-0.2; Units: MG/DL; Status: F Test: TOTAL PROTEIN; Value: 7.6; Range: 6.4-8.2; Units: GM/DL; Status: F Test: ALBUMIN; Value: 4.1; Range: 3.2-5.2; Units: GM/DL; Status: F Test: ALBUMIN/GLOBULIN RATIO; Value: 1.17; Range: 1.00-1.93; Status: F Lab Order: Urinalysis; SPEC'M 08/28/16 12:08 Test: APPEARANCE, URINE; Value: HAZY; Range: CLEAR; Status: F Test: COLOR, URINE; Value: YELLOW; Range: YELLOW; Status: F Test: PH,URINE; Value: 5.0; Range: 5.0-9.0; Units: UNITS; Status: F Test: SPECIFIC GRAVITY URINE AUTO; Value: 1.029; Range: 1.002-1.035; Status: F Test: PROTEIN, URINE AUTO; Value: 1+; Range: NEGATIVE; Abnormal: Above high normal; Units: mg/dL; Status: F Test: GLUCOSE, URINE (UA) AUTO; Value: NEGATIVE; Range: NEGATIVE; Units: mg/dL; Status: F Test: KETONE, URINE AUTO; Value: 2+; Range: NEGATIVE; Abnormal: Above high normal; Units: mg/dL; Status: F Test: UROBILINOGEN, URINE AUTO; Value: 2.0; Range: 0.0-2.0; Abnormal: Above high normal; Units: mg/dL; Status: F Test: BILIRUBIN, URINE AUTO; Value: NEGATIVE; Range: NEGATIVE; Status: F Test: NITRITE, URINE AUTO; Value: NEGATIVE; Range: NEGATIVE; Status: F Test: LEUKOCYTE ESTERASE, URINE AUTO; Value: NEGATIVE; Range: NEGATIVE; Status: F Test: BLOOD, URINE BLOOD; Value: NEGATIVE; Range: NEGATIVE; Status: F Test: WBC, URINE AUTO; Value: 1; Range: 0-3; Units: /HPF; Status: F Test: RBC, URINE AUTO; Value: 6; Range: 0-3; Abnormal: Above high normal; Units: /HPF; Status: F Test: BACTERIA, URINE AUTO; Value: NEGATIVE; Range: NEGATIVE; Status: F Test: SQUAMOUS EPITHELIAL CELL UR AU; Value: 0; Range: 0-6; Units: /HPF; Status: F Test: MUCUS, URINE; Value: SMALL; Range: NEGATIVE; Status: F Test: HYALINE CAST, URINE AUTO; Value: 1; Range: 0-1; Units: /LPF; Status: F Lab Order: CRP; SPEC'M 08/28/16 12:08 Test: C REACTIVE PROTEIN QUANTITATIV; Value: 0.51; Range: 0.00-0.30; Abnormal: Above high normal; Units: MG/DL; Status: F Radiology Order: CT ABD & PELVIS: IV and Oral Contrast Test: CT ABD & PELVIS: IV and Oral Contrast REASON FOR EXAMINATION: Abdomen Pain; CT study of the abdomen and pelvis with IV and oral contrast:; ; History: Abdominal pain.; ; CT contrast dose: 100 mL of Isovue 370 is administered intravenously.; ; CT findings: Digital hanger radiograph demonstrates multiple dilated large and; small bowel loops in the central abdomen. Axial CT images demonstrate that the; lung bases are free of infiltrate. No pleural effusion is seen. There is; however a small quantity of ascites visible in the perihepatic region and in the; pelvic reflections.; ; The liver and the spleen are normal in size and homogeneous in texture.; Gallbladder is unremarkable. No pancreatic abnormality is appreciated. No; visible adrenal lesion. Kidneys enhance symmetrically are morphologically; intact. Normal caliber aorta is seen.; ; There is diffuse dilation of the large and small intestine with a large quantity; of low density stool throughout the large intestine including the descending; colon distal to the rectosigmoid colon. In the rectosigmoid colon there is the; suggestion of mural thickening and enhancement along with diverticulosis. This; may reflect a diverticular or neoplastic stricture. Sigmoidoscopy versus limited; barium enema should be considered. There is a distal left colonic obstructive; pattern in the bowel gas. No free air is seen. No abscess is observed. No; abdominal wall defect is seen. Bone window settings show no bony destructive; lesion.; ; Impression:; ; Distal left colon obstruction pattern in the bowel gas. Minimal ascites.; Malignant versus diverticular stricture rectosigmoid colon. Consider; sigmoidoscopy versus limited barium enema. No evidence of free air or abscess.; ; ; Signed by; Roque Laird MD 08/28/2016 03:06 P; Outcome: 15:32 Decision to Hospitalize by Provider. dt4 16:59 Discharge Assessment: patient administered narcotics - no. The following High Risk [facility] Discharge criteria are identified: None. Admitted to Med/Surg accompanied by tech, via wheelchair, with chart. Condition: stable. CT Study completed. Property :Personal belongings accompany Pt. 17:07 [address] the ED[address] [facility] Signatures: Dispatcher Brenco Abbey Umana, RN RN Chel Wallace, RN RN Milena Amaya, Reg Reg Marina MullenRN RN jo3 Howard Clark Erin, ROVING SIZER ROVING SIZER Yulisa Delgadillo RN RN mk4 Loretta Pereira, PA-C PA-C Zuleika Green Corrections: (The following items were deleted from the chart) General: Appears in no apparent distress, comfortable, Behavior is appropriate jo3 for age, cooperative, jo3 : Neurological: Level of Consciousness is awake, alert, Oriented to person, place, jo3 time, jo3 : Respiratory: Airway is patent Respiratory effort is even, unlabored, jo3 jo3 : Derm: Skin is pink, warm & dry. jo3 jo3 Chart Complete MTDD
--- NOTE | 2016-08-30 18:08 | EDDOCDS ---
Physician Documentation [facility] Name: Sylvain Moran Age: 61 yrs Sex: Female : 1955 Arrival Date: 08/28/2016 Time: 11:17 Bed I3 / M3 Private MD: ISABEL LOERA Disposition: 08/28/16 15:32 Hospitalization ordered by Elver Emmanuel for Inpatient Admission. 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 - Bed requested for 4 [place]. - Status is Inpatient Admission. mcp - Condition is Stable. - Problem is new. - Symptoms are unchanged. Historical: - Allergies: No known drug Allergies; - Home Meds: 1. none - PMHx: Some kind of bowel fistula; - PSHx: Colonoscopy; - Social history: Smoking status: Patient states former smoker of tobacco. No barriers to communication noted, The patient speaks fluent Sudanese, Speaks appropriately for age. - Family history: Not pertinent. - : The pt / caregiver states he / she is not on anticoagulants. Home medication list is obtained from the patient. - Exposure Risk Screening:: None identified. Vital Signs: 08/28 11:21 BP 137 / 80; Pulse 79; Resp 18; Temp 98.9(O); Pulse Ox 98% on R/A; Weight 64.41 kg / elp 142 lbs (R); Height 5 ft. 8 in. (172.72 cm) (R); Pain 4/10; 13:25 BP 153 / 88; Pulse 53; Resp 18; Temp 96.6(O); Pulse Ox 100% on R/A; Pain 3/10; jml1 16:12 BP 141 / 92; Pulse 71; Resp 18; Temp 97.7(TE); Pulse Ox 97% on R/A; Pain 3/10; jml1 11:21 Body Mass Index 21.59 (64.41 kg, 172.72 cm) elp MDM: 12:03 NS 0.9% 1000 ml IV at bolus once ordered. dt4 12:03 IV Saline Lock ordered. dt4 12:03 Undress patient appropriately for examination ordered. dt4 12:04 CT ABD & PELVIS: IV and Oral Contrast Ordered. EDMS 12:04 Amylase Ordered. EDMS 12:04 Basic Metabolic Profile Ordered. EDMS 12:04 CBC with Diff Ordered. EDMS 12:04 Lipase Ordered. EDMS 12:04 Liver Profile Ordered. EDMS 12:04 Urinalysis Ordered. EDMS 12:04 CRP Ordered. EDMS 12:04 Urine Culture Ordered. EDMS 12:05 NOTHING BY MOUTH+DIET ordered. EDMS 12:17 Diatrizoate Meglumine & Sodium Liquid 10 ml PO once; mix in 290cc of water ordered. mcp 12:17 Diatrizoate Meglumine & Sodium Liquid 10 ml PO once; mix in 290cc of water ordered. [facility] 14:44 BED REQUEST+ADM ordered. EDMS 15:53 Barium Enema Ordered. EDMS 15:53 Admission / Observation Status ordered. EDMS 15:54 NPO DIET ordered. EDMS 16:25 [facility] Payment Agreement was scanned into Evgen and attached to record. [facility] 16:25 Financial registration complete. [facility] 08/29 11:10 T-Sheet-- Draft Copy was scanned into Evgen and attached to record. gb Administered Medications: 08/28 12:18 Drug: NS 0.9% 1000 ml [sodium chloride 0.9 % intravenous solution] Route: IV; Rate: mk4 bolus; Site: left antecubital; 12:18 Drug: Diatrizoate Meglumine & Sodium 10 ml [diatrizoate meglumine and diat.sodium 66 mcp %-10 % oral solution (10 mL)] Route: PO; 12:52 Drug: Diatrizoate Meglumine & Sodium 10 ml [diatrizoate meglumine and diat.sodium 66 mcp %-10 % oral solution (10 mL)] Route: PO; Signatures: Dispatcher MedHost EDWI Chel Jane, RN Milena Oliveros mcp, Reg Reg gb Marina FinneganRN RN Loretta Orozco, PAJoseluis PAJoseluis [email or web address] Sean Tidwell RN RN mts Beck, Gabriela gjb King, Margaret RN mk4 The chart was reviewed and I authenticate all verbal orders and agree with the evaluation and treatment provided.Attachments: 16:25 [facility] Payment Agreement [facility] 08/29 11:10 T-Sheet-- Draft Copy Chart Complete MTDD
--- NOTE | 2016-08-30 18:08 | EDDOCDS ---
Physician Documentation [facility] Name: Sylvain Moran Age: 61 yrs Sex: Female : 1955 Arrival Date: 08/28/2016 Time: 11:17 Bed I3 / M3 Private MD: ISABEL LOERA Disposition: 08/28/16 15:32 Hospitalization ordered by Elver Emmanuel for Inpatient Admission. 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 - Bed requested for 4 [place]. - Status is Inpatient Admission. mcp - Condition is Stable. - Problem is new. - Symptoms are unchanged. Historical: - Allergies: No known drug Allergies; - Home Meds: 1. none - PMHx: Some kind of bowel fistula; - PSHx: Colonoscopy; - Social history: Smoking status: Patient states former smoker of tobacco. No barriers to communication noted, The patient speaks fluent Bermudian, Speaks appropriately for age. - Family history: Not pertinent. - : The pt / caregiver states he / she is not on anticoagulants. Home medication list is obtained from the patient. - Exposure Risk Screening:: None identified. Vital Signs: 08/28 11:21 BP 137 / 80; Pulse 79; Resp 18; Temp 98.9(O); Pulse Ox 98% on R/A; Weight 64.41 kg / elp 142 lbs (R); Height 5 ft. 8 in. (172.72 cm) (R); Pain 4/10; 13:25 BP 153 / 88; Pulse 53; Resp 18; Temp 96.6(O); Pulse Ox 100% on R/A; Pain 3/10; jml1 16:12 BP 141 / 92; Pulse 71; Resp 18; Temp 97.7(TE); Pulse Ox 97% on R/A; Pain 3/10; jml1 11:21 Body Mass Index 21.59 (64.41 kg, 172.72 cm) elp MDM: 12:03 NS 0.9% 1000 ml IV at bolus once ordered. dt4 12:03 IV Saline Lock ordered. dt4 12:03 Undress patient appropriately for examination ordered. dt4 12:04 CT ABD & PELVIS: IV and Oral Contrast Ordered. EDMS 12:04 Amylase Ordered. EDMS 12:04 Basic Metabolic Profile Ordered. EDMS 12:04 CBC with Diff Ordered. EDMS 12:04 Lipase Ordered. EDMS 12:04 Liver Profile Ordered. EDMS 12:04 Urinalysis Ordered. EDMS 12:04 CRP Ordered. EDMS 12:04 Urine Culture Ordered. EDMS 12:05 NOTHING BY MOUTH+DIET ordered. EDMS 12:17 Diatrizoate Meglumine & Sodium Liquid 10 ml PO once; mix in 290cc of water ordered. mcp 12:17 Diatrizoate Meglumine & Sodium Liquid 10 ml PO once; mix in 290cc of water ordered. [facility] 14:44 BED REQUEST+ADM ordered. EDMS 15:53 Barium Enema Ordered. EDMS 15:53 Admission / Observation Status ordered. EDMS 15:54 NPO DIET ordered. EDMS 16:25 [facility] Payment Agreement was scanned into E-Sign and attached to record. [facility] 16:25 Financial registration complete. [facility] 08/29 11:10 T-Sheet-- Draft Copy was scanned into E-Sign and attached to record. gb Administered Medications: 08/28 12:18 Drug: NS 0.9% 1000 ml [sodium chloride 0.9 % intravenous solution] Route: IV; Rate: mk4 bolus; Site: left antecubital; 12:18 Drug: Diatrizoate Meglumine & Sodium 10 ml [diatrizoate meglumine and diat.sodium 66 mcp %-10 % oral solution (10 mL)] Route: PO; 12:52 Drug: Diatrizoate Meglumine & Sodium 10 ml [diatrizoate meglumine and diat.sodium 66 mcp %-10 % oral solution (10 mL)] Route: PO; Signatures: Dispatcher MedHost EDWY Chel Jane, RN Milena Oliveros mcp, Reg Reg gb Marina FinneganRN RN Loretta Orozco, PAJoseluis PAJoseluis [email or web address] Sean Tidwell RN RN mts Beck, Gabriela gjb King, Margaret RN mk4 The chart was reviewed and I authenticate all verbal orders and agree with the evaluation and treatment provided.Attachments: 16:25 [facility] Payment Agreement [facility] 08/29 11:10 T-Sheet-- Draft Copy Chart Complete MTDD
[2016-08-30 22:00] VITALS: BP 144/80
[2016-08-31] MEDS: LR 1,000 ML IV SCH ×4 (04:52→23:44)
[2016-08-31] MEDS: metroNIDAZOLE 500 MG in APPROPRIATE DILUENT 1 EA IV SCH ×3 (04:52→20:07)
[2016-08-31] MEDS: CIPROFLOXACIN 400 MG in APPROPRIATE DILUENT 1 EA IV SCH ×2 (05:28→16:48)
[2016-08-31 06:00] VITALS: BP 125/69
[2016-08-31 06:19] LABS: BASO % 0.4 % (0.0-1.0); EOS # 0.2 K/mm3 (0.0-0.50); EOS % 2.7 % (0.0-3.0); LARGE UNSTAINED CELL # 0.1 K/mm3 (0.0-0.4); LARGE UNSTAINED CELL % 2.2 % (0.0-4.0); LYMPH # 1.7 K/mm3 (1.5-4.5); MEAN CORPUSCULAR HEMOGLOBIN 32.2 pg (27.0-33.0); MEAN CORPUSCULAR HGB CONC 32.6 g/dl (32.0-36.5); MEAN CORPUSCULAR VOLUME 98.9 fl (80.0-96.0); MONO # 0.5 K/mm3 (0.0-0.8); MONO % 7.5 % (0.0-5.0); NEUTROPHILS % 63.3 % (36.0-66.0); PLATELET COUNT, AUTOMATED 183 k/mm3 (150-450); RED CELL DISTRIBUTION WIDTH 12.5 % (11.5-14.5); WHITE BLOOD COUNT 6.4 K/mm3 (4.0-10.0)
[2016-08-31 06:36] LABS: ANION GAP 11 MEQ/L (8-16); BLOOD UREA NITROGEN 13 MG/DL (7-18); CARBON DIOXIDE LEVEL 27 MEQ/L (21-32); CHLORIDE LEVEL 101 MEQ/L (98-107); CREATININE FOR GFR 0.92 MG/DL (0.70-1.30); GLOMERULAR FILTRATION RATE > 60.0 (>56); GLUCOSE, FASTING 67 MG/DL (70-105); POTASSIUM SERUM 4.1 MEQ/L (3.5-5.1); SODIUM LEVEL 139 MEQ/L (136-145)
[2016-08-31] MEDS: PANTOPRAZOLE 40MG INJ (PROTONIX) (C9113) IV SCH (08:40)
[2016-08-31] MEDS: ENOXAPARIN 40 MG/0.4 ML SYRINGE (J1650) SC SCH (08:40)
[2016-08-31] MEDS: PERCOCET 5MG/325MG TAB PO PRN ×2 (09:27→20:09)
[2016-08-31] MEDS: FLEET ENEMA PR SCH ×2 (09:50→21:16)
[2016-08-31 14:00] VITALS: BP 154/80
[2016-08-31 22:00] VITALS: BP 136/89
[2016-09-01] VITALS (7 sets, daily range): BP systolic 117–145; BP diastolic 73–83
[2016-09-01] MEDS: CIPROFLOXACIN 400 MG in APPROPRIATE DILUENT 1 EA IV SCH ×2 (05:01→20:03)
[2016-09-01] MEDS: metroNIDAZOLE 500 MG in APPROPRIATE DILUENT 1 EA IV SCH ×3 (05:01→21:17)
[2016-09-01 05:41] LABS: BASO % 0.5 % (0.0-1.0); EOS # 0.2 K/mm3 (0.0-0.50); EOS % 3.3 % (0.0-3.0); LARGE UNSTAINED CELL # 0.2 K/mm3 (0.0-0.4); LARGE UNSTAINED CELL % 2.7 % (0.0-4.0); LYMPH # 1.5 K/mm3 (1.5-4.5); LYMPH % 24.7 % (24.0-44.0); MEAN CORPUSCULAR HEMOGLOBIN 32.7 pg (27.0-33.0); MEAN CORPUSCULAR HGB CONC 33.4 g/dl (32.0-36.5); MONO # 0.4 K/mm3 (0.0-0.8); MONO % 7.5 % (0.0-5.0); NEUTROPHILS # 3.5 K/mm3 (1.8-7.7); NEUTROPHILS % 61.3 % (36.0-66.0); PLATELET COUNT, AUTOMATED 199 k/mm3 (150-450); RED CELL DISTRIBUTION WIDTH 12.7 % (11.5-14.5); WHITE BLOOD COUNT 5.6 K/mm3 (4.0-10.0)
[2016-09-01 05:42] LABS: ANION GAP 10 MEQ/L (8-16); BLOOD UREA NITROGEN 12 MG/DL (7-18); CALCIUM LEVEL 7.7 MG/DL (8.5-10.1); CARBON DIOXIDE LEVEL 27 MEQ/L (21-32); CHLORIDE LEVEL 100 MEQ/L (98-107); GLOMERULAR FILTRATION RATE > 60.0 (>56); GLUCOSE, FASTING 69 MG/DL (70-105); SODIUM LEVEL 137 MEQ/L (136-145)
[2016-09-01] MEDS: LR 1,000 ML IV SCH ×3 (06:11→23:22)
[2016-09-01] MEDS: PANTOPRAZOLE 40MG INJ (PROTONIX) (C9113) IV SCH (10:06)
[2016-09-01] MEDS: FLEET ENEMA PR SCH ×2 (10:08→21:00)
[2016-09-01] MEDS: PERCOCET 5MG/325MG TAB PO PRN (10:08)
[2016-09-01] MEDS: ENOXAPARIN 40 MG/0.4 ML SYRINGE (J1650) SC SCH (10:08)
[2016-09-01] MEDS ORDERED: MIDAZOLAM INJ 2 MG/2 ML VIAL (J2250) As Ordered ONE (12:40)
[2016-09-01] MEDS ORDERED: LIDOCAINE 2% INJ 100 MG/5 ML SDV (FOR ANES.) As Ordered ONE (12:42)
[2016-09-01] MEDS ORDERED: fentaNYL 250 MCG/5 ML INJECTION (J3010) As Ordered ONE (12:42)
[2016-09-01] MEDS ORDERED: PROPOFOL 200 MG/20 ML VIAL As Ordered ONE (12:43)
[2016-09-01] MEDS ORDERED: ROCURONIUM BROMIDE 50 MG/5 ML VIAL As Ordered ONE ×3 (12:46→16:14)
[2016-09-01] MEDS ORDERED: LIDOCAINE 1% SDV INJ 30 ML VIAL As Ordered ONE (13:04)
[2016-09-01] MEDS ORDERED: BUPIVACAINE HCL 0.25% 30 ML VIAL As Ordered ONE (13:04)
[2016-09-01] MEDS ORDERED: dexameTHASONE 4 MG/ML 1ML VIAL (J1100) As Ordered ONE (14:06)
[2016-09-01] MEDS ORDERED: METOCLOPRAMIDE INJ 10MG/2ML VIAL (J2765) As Ordered ONE (14:07)
[2016-09-01] MEDS ORDERED: ePHEDrine SULFATE 25 MG/5 ML(5MG/ML) SYRINGE As Ordered ONE (14:08)
[2016-09-01] MEDS ORDERED: BUPIVACAINE HCL 0.25% 30 ML VIAL XX ONE (14:56)
[2016-09-01] MEDS ORDERED: LIDOCAINE 1% SDV INJ 30 ML VIAL XX ONE (14:58)
[2016-09-01] MEDS ORDERED: HYDROmorphone HCL 2 MG/ML 1ML VIAL (J1170) As Ordered ONE (15:13)
[2016-09-01] MEDS ORDERED: KETOROLAC 60 MG/2 ML VIAL (J1885) As Ordered ONE (17:11)
[2016-09-01] MEDS ORDERED: SUGAMMADEX SODIUM 500 MG/5 ML VIAL (BRIDION) As Ordered ONE (17:13)
[2016-09-01] MEDS ORDERED: MORPHINE PCA 1MG/ML 100ML CADD As Ordered ONE (18:11)
[2016-09-01] MEDS: MORPHINE PCA 1MG/ML 100ML CADD IV PRN ×2 (18:20→18:30)
[2016-09-01] MEDS ORDERED: NALOXONE INJ 0.4 MG/1 ML VIAL (J2310) IV PRN (18:30)
[2016-09-01] MEDS ORDERED: fentaNYL 100 MCG/2 ML INJECTION (J3010) IV PRN (18:30)
[2016-09-01] MEDS ORDERED: ONDANSETRON 4MG/2ML VIAL (J2405) IV PRN ×2 (18:30)
[2016-09-01] MEDS ORDERED: HYDROmorphone HCL 1 MG/ML SYRINGE (J1170) IV PRN (18:30)
[2016-09-01] MEDS ORDERED: EPIDURAL/PCA KEYS XX PRN (18:30)
[2016-09-01] MEDS ORDERED: NALBUPHINE HCL 10 MG/ML AMP (J2300) IV PRN (18:30)
[2016-09-01] MEDS ORDERED: diphenhydrAMINE INJ 50MG/ML VIAL (J1200) IV PRN (18:30)
[2016-09-01] MEDS ORDERED: PERCOCET 5MG/325MG TAB PO PRN (18:30)
[2016-09-01] MEDS ORDERED: LR 1,000 ML IV SCH (18:30)
--- NOTE | 2016-09-01 18:50 | RO ---
DATE OF PROCEDURE: 09/01/2016 PREOPERATIVE DIAGNOSIS: Left colon obstruction. POSTOPERATIVE DIAGNOSIS: Diverticular stricture. PROCEDURE: Left low anterior resection and end colostomy, intraoperative sigmoidoscopy. SURGEON: Dr. Elver Emmanuel. WORKERS COMPENSATION LEGAL SECRETARY: Dr. Chase Farris ANESTHESIA: General anesthesia. ESTIMATED BLOOD LOSS: Roughly about 200 mL. COMPLICATIONS: None. REMARKS: The patient tolerated the procedure well. DESCRIPTION OF PROCEDURE: Mr. Moran is a 61-year-old gentleman who presented with worsening abdominal distension, found to have left colon obstruction from the area of stricture at the rectosigmoid junction. The patient reports having had previous history of stricture at that area in 2012, was advised surgery then but since he was asymptomatic at that time, deferred. He was admitted to the hospital under my service. Barium enema confirmed the presence of tight stricture. He was passing flatus. He was getting some Fleets enema with some effect. He was brought in today for colon resection. Consent was obtained from the patient. He has been receiving ciprofloxacin and metronidazole during his stay. This was continued in the perioperative period. He was brought to the operating room, laid supine on the table, compression boots placed on his lower extremities for deep vein thrombosis (DVT) prophylaxis. General endotracheal anesthesia started without any complications. He was then placed in Jose Carlos stirrups in a lithotomy position. His abdomen, groin and perineal area then prepped and draped in usual sterile fashion. Performed surgical time-out. We began our surgery. We did a trial of laparoscopy, a small incision was created on top of his umbilicus. A Veress needle was inserted in a controlled fashion. Intra-abdominal placement confirmed with saline drop technique. CO2 insufflation was started at a pressure of 15 mmHg. Though he was fully relaxed, we did not gain that much space with insufflation. Under direct vision, a 5 mm Visiport was placed under direct vision of laparoscope. On entry, we inspected for injury and none was noted. The colon was massively distended, filling up most of the abdomen; likewise, small bowel was mildly distended. There was a moderate amount of serous ascites in the pelvis, likewise around the liver and spleen. He was placed in a steep Trendelenburg position. Working ports were placed both in the left lateral quadrant, likewise at the right upper midline area. We tried to manipulate the sigmoid colon, but this was tacked at the lateral chest wall just at the outlet of the pelvis. We then placed him in a steep reverse Trendelenburg position to perform a splenic flexure takedown. His transverse colon was very much distended. This goes down into the pelvis and then goes back up again. The colon was freed from the omentum and circumferentially dissected, freeing this from the splenic flexure attachments to the spleen and to the lateral abdominal wall. Once we had enough left, we came down to the lateral sidewall freeing the left colon up. At this point, since we did not have that much space, we decided to convert it to open surgery. A lower midline incision was created from the top of the umbilicus, taken down to the symphysis pubis. Under direct vision, the peritoneum was opened up. Buckner self-retaining retractor was placed. The patient was placed in a steep Trendelenburg position. We continued to work freeing the sigmoid colon from its lateral attachments and likewise circumferentially getting down to the rectum. There was a lot of fibrotic attachments to the rectosigmoid colon which was quite hardened and distended. We circumferentially dissected up, opening up the plane between the rectum and the bladder and likewise freeing this off from the right lateral attachments. I chose an area that is fairly healthy at the early sigmoid colon. This was lifted off and circumferentially dissected. Using an [place] 60 with a green load, this was divided. This made it easy to come around posteriorly, taking down the sigmoid colon mesentery, likewise coming around the mesorectum posteriorly going laterally. We identified the left ureter, this from our dissection, likewise also identified the right ureter and this from our dissection. Coming down at the mid rectal area, I could still feel some hardening. Thus, I decided to perform a flexible sigmoidoscopy. No masses were found, though we could not maneuver around despite me trying to straighten up the colon. We chose an area distal to the most strictured part. This needed several firings of the [place] 60 with a green load to decrease the diameter of the colon, likewise to take down the mesorectum. Once this was done, a contour stapler was then maneuvered around the area and fired, essentially freeing the rectosigmoid area. This was delivered as a specimen. I opened this up. I just found some tight stricture and no masses were found. After changing this gowns and gloves, we irrigated the pelvis, checked for adequate hemostasis. Once satisfied, I chose an area around the left periumbilical area. About 1-1/2 cm circular incision was created. This was deepened through the rectus muscle which was retracted, and the fascia and the peritoneum was opened up to allow two fingers distance. The end of the sigmoid colon was then pulled through the colostomy. Me and my assistant store manager operations, as well as my nurse, changed gowns and gloves once more for closure. The fascia was closed with one loop of PDS and the after irrigation of the subcutaneous space, the skin was closed loosely with skin rocky. The colostomy was then matured in a Judit fashion. The patient was then promptly awakened, extubated and brought to recovery room stable.
[2016-09-02] VITALS (7 sets, daily range): BP systolic 106–116; BP diastolic 60–78
[2016-09-02] MEDS: metroNIDAZOLE 500 MG in APPROPRIATE DILUENT 1 EA IV SCH (03:56)
[2016-09-02] MEDS: CIPROFLOXACIN 400 MG in APPROPRIATE DILUENT 1 EA IV SCH (05:39)
[2016-09-02] MEDS: KETOROLAC 30 MG/ML VIAL (J1885) IV SCH ×5 (05:40→23:53)
[2016-09-02 06:52] LABS: BASO % 0.1 % (0.0-1.0); LARGE UNSTAINED CELL # 0.2 K/mm3 (0.0-0.4); LARGE UNSTAINED CELL % 1.1 % (0.0-4.0); LYMPH # 0.8 K/mm3 (1.5-4.5); LYMPH % 5.4 % (24.0-44.0); MEAN CORPUSCULAR HEMOGLOBIN 32.8 pg (27.0-33.0); MEAN CORPUSCULAR HGB CONC 33.5 g/dl (32.0-36.5); MEAN CORPUSCULAR VOLUME 97.7 fl (80.0-96.0); MONO # 0.5 K/mm3 (0.0-0.8); MONO % 3.5 % (0.0-5.0); NEUTROPHILS % 89.9 % (36.0-66.0); PLATELET COUNT, AUTOMATED 196 k/mm3 (150-450); RED CELL DISTRIBUTION WIDTH 12.2 % (11.5-14.5); WHITE BLOOD COUNT 14.4 K/mm3 (4.0-10.0)
[2016-09-02 07:05] LABS: ANION GAP 8 MEQ/L (8-16); BLOOD UREA NITROGEN 14 MG/DL (7-18); CALCIUM LEVEL 7.8 MG/DL (8.5-10.1); CARBON DIOXIDE LEVEL 28 MEQ/L (21-32); CHLORIDE LEVEL 101 MEQ/L (98-107); CREATININE FOR GFR 1.02 MG/DL (0.70-1.30); GLOMERULAR FILTRATION RATE > 60.0 (>56); GLUCOSE, FASTING 138 MG/DL (70-105); POTASSIUM SERUM 4.5 MEQ/L (3.5-5.1); SODIUM LEVEL 137 MEQ/L (136-145)
[2016-09-02] MEDS: LR 1,000 ML IV SCH ×3 (09:04→15:40)
[2016-09-02] MEDS: PANTOPRAZOLE 40MG INJ (PROTONIX) (C9113) IV SCH (09:24)
[2016-09-02] MEDS: ENOXAPARIN 40 MG/0.4 ML SYRINGE (J1650) SC SCH (09:25)
[2016-09-02] MEDS: SENOKOT S TAB PO SCH (09:26)
[2016-09-03 02:00] VITALS: BP 110/72
[2016-09-03] MEDS: LR 1,000 ML IV SCH ×3 (03:28→23:58)
[2016-09-03 06:00] VITALS: BP 115/75
[2016-09-03] MEDS: KETOROLAC 30 MG/ML VIAL (J1885) IV SCH ×4 (06:03→23:57)
[2016-09-03 08:01] VITALS: BP 123/81
[2016-09-03] MEDS: ENOXAPARIN 40 MG/0.4 ML SYRINGE (J1650) SC SCH (09:14)
[2016-09-03] MEDS: PANTOPRAZOLE 40MG INJ (PROTONIX) (C9113) IV SCH (09:14)
[2016-09-03] MEDS: SENOKOT S TAB PO SCH (09:14)
[2016-09-03] MEDS: PERCOCET 5MG/325MG TAB PO PRN (12:52)
[2016-09-03] MEDS: SIMETHICONE 80 MG CHEW TAB PO PRN ×2 (12:52→22:41)
[2016-09-03 14:00] VITALS: BP 124/77
[2016-09-03 22:00] VITALS: BP 124/84
[2016-09-04 02:00] VITALS: BP 130/77
[2016-09-04] MEDS: KETOROLAC 30 MG/ML VIAL (J1885) IV SCH ×4 (05:53→23:51)
[2016-09-04 06:00] VITALS: BP 134/86
[2016-09-04 06:23] LABS: BASO % 0.2 % (0.0-1.0); EOS # 0.4 K/mm3 (0.0-0.50); EOS % 4.8 % (0.0-3.0); LARGE UNSTAINED CELL # 0.1 K/mm3 (0.0-0.4); LARGE UNSTAINED CELL % 1.7 % (0.0-4.0); LYMPH % 10.5 % (24.0-44.0); MEAN CORPUSCULAR HEMOGLOBIN 32.5 pg (27.0-33.0); MEAN CORPUSCULAR HGB CONC 32.9 g/dl (32.0-36.5); MEAN CORPUSCULAR VOLUME 99.1 fl (80.0-96.0); MONO # 0.6 K/mm3 (0.0-0.8); MONO % 7.8 % (0.0-5.0); PLATELET COUNT, AUTOMATED 203 k/mm3 (150-450); RED CELL DISTRIBUTION WIDTH 12.8 % (11.5-14.5)
[2016-09-04 06:34] LABS: ANION GAP 8 MEQ/L (8-16); BLOOD UREA NITROGEN 14 MG/DL (7-18); CALCIUM LEVEL 7.8 MG/DL (8.5-10.1); CARBON DIOXIDE LEVEL 31 MEQ/L (21-32); CHLORIDE LEVEL 103 MEQ/L (98-107); CREATININE FOR GFR 0.82 MG/DL (0.70-1.30); GLOMERULAR FILTRATION RATE > 60.0 (>56); GLUCOSE, FASTING 86 MG/DL (70-105); POTASSIUM SERUM 4.1 MEQ/L (3.5-5.1); SODIUM LEVEL 142 MEQ/L (136-145)
[2016-09-04] MEDS: SENOKOT S TAB PO SCH (08:32)
[2016-09-04] MEDS: ENOXAPARIN 40 MG/0.4 ML SYRINGE (J1650) SC SCH (08:32)
[2016-09-04] MEDS: PANTOPRAZOLE 40MG INJ (PROTONIX) (C9113) IV SCH (08:32)
[2016-09-04] MEDS: LR 1,000 ML IV SCH (12:14)
[2016-09-04 14:00] VITALS: BP 139/83
[2016-09-04 20:45] VITALS: BP 136/72
[2016-09-05] MEDS: KETOROLAC 30 MG/ML VIAL (J1885) IV SCH ×4 (06:08→23:58)
[2016-09-05 06:16] LABS: BASO % 0.2 % (0.0-1.0); EOS # 0.5 K/mm3 (0.0-0.50); EOS % 7.4 % (0.0-3.0); LARGE UNSTAINED CELL # 0.2 K/mm3 (0.0-0.4); LARGE UNSTAINED CELL % 2.3 % (0.0-4.0); LYMPH # 1.3 K/mm3 (1.5-4.5); LYMPH % 17.6 % (24.0-44.0); MEAN CORPUSCULAR HEMOGLOBIN 32.7 pg (27.0-33.0); MEAN CORPUSCULAR HGB CONC 32.9 g/dl (32.0-36.5); MEAN CORPUSCULAR VOLUME 99.3 fl (80.0-96.0); MONO # 0.6 K/mm3 (0.0-0.8); MONO % 8.7 % (0.0-5.0); NEUTROPHILS # 4.2 K/mm3 (1.8-7.7); NEUTROPHILS % 63.8 % (36.0-66.0); PLATELET COUNT, AUTOMATED 248 k/mm3 (150-450); RED CELL DISTRIBUTION WIDTH 12.7 % (11.5-14.5); WHITE BLOOD COUNT 6.6 K/mm3 (4.0-10.0)
[2016-09-05 06:23] LABS: ANION GAP 6 MEQ/L (8-16); BLOOD UREA NITROGEN 8 MG/DL (7-18); CALCIUM LEVEL 7.8 MG/DL (8.5-10.1); CARBON DIOXIDE LEVEL 30 MEQ/L (21-32); CHLORIDE LEVEL 105 MEQ/L (98-107); CREATININE FOR GFR 0.79 MG/DL (0.70-1.30); GLOMERULAR FILTRATION RATE > 60.0 (>56); GLUCOSE, FASTING 98 MG/DL (70-105); POTASSIUM SERUM 3.9 MEQ/L (3.5-5.1); SODIUM LEVEL 141 MEQ/L (136-145)
[2016-09-05 06:35] VITALS: BP 126/75
[2016-09-05] MEDS: SENOKOT S TAB PO SCH (09:55)
[2016-09-05] MEDS: PANTOPRAZOLE 40MG INJ (PROTONIX) (C9113) IV SCH (09:55)
[2016-09-05] MEDS: ENOXAPARIN 40 MG/0.4 ML SYRINGE (J1650) SC SCH (09:57)
[2016-09-05 14:00] VITALS: BP 134/88
[2016-09-05 20:20] VITALS: BP 135/86
[2016-09-06] MEDS: KETOROLAC 30 MG/ML VIAL (J1885) IV SCH ×4 (05:06→23:27)
[2016-09-06 05:50] VITALS: BP 123/79
[2016-09-06 06:00] LABS: BASO % 0.2 % (0.0-1.0); EOS # 0.4 K/mm3 (0.0-0.50); EOS % 5.9 % (0.0-3.0); LARGE UNSTAINED CELL # 0.2 K/mm3 (0.0-0.4); LARGE UNSTAINED CELL % 3.7 % (0.0-4.0); LYMPH # 1.3 K/mm3 (1.5-4.5); LYMPH % 20.8 % (24.0-44.0); MEAN CORPUSCULAR HEMOGLOBIN 31.9 pg (27.0-33.0); MEAN CORPUSCULAR HGB CONC 31.9 g/dl (32.0-36.5); MEAN CORPUSCULAR VOLUME 99.9 fl (80.0-96.0); MONO # 0.4 K/mm3 (0.0-0.8); MONO % 5.9 % (0.0-5.0); NEUTROPHILS % 63.6 % (36.0-66.0); PLATELET COUNT, AUTOMATED 262 k/mm3 (150-450); RED CELL DISTRIBUTION WIDTH 12.5 % (11.5-14.5); WHITE BLOOD COUNT 6.3 K/mm3 (4.0-10.0)
[2016-09-06 06:26] LABS: ANION GAP 5 MEQ/L (8-16); BLOOD UREA NITROGEN 12 MG/DL (7-18); CALCIUM LEVEL 7.7 MG/DL (8.5-10.1); CARBON DIOXIDE LEVEL 30 MEQ/L (21-32); CHLORIDE LEVEL 106 MEQ/L (98-107); CREATININE FOR GFR 0.81 MG/DL (0.70-1.30); GLOMERULAR FILTRATION RATE > 60.0 (>56); GLUCOSE, FASTING 92 MG/DL (70-105); SODIUM LEVEL 141 MEQ/L (136-145)
[2016-09-06 08:40] VITALS: BP 126/76
[2016-09-06] MEDS: PANTOPRAZOLE 40MG INJ (PROTONIX) (C9113) IV SCH (09:06)
[2016-09-06] MEDS: ENOXAPARIN 40 MG/0.4 ML SYRINGE (J1650) SC SCH (09:06)
[2016-09-06] MEDS: SENOKOT S TAB PO SCH (09:06)
[2016-09-06 13:30] VITALS: BP 128/82
[2016-09-06 22:00] VITALS: BP 138/80
[2016-09-07 05:50] LABS: BASO % 0.2 % (0.0-1.0); EOS # 0.4 K/mm3 (0.0-0.50); EOS % 6.3 % (0.0-3.0); LARGE UNSTAINED CELL # 0.3 K/mm3 (0.0-0.4); LARGE UNSTAINED CELL % 4.1 % (0.0-4.0); LYMPH # 1.1 K/mm3 (1.5-4.5); LYMPH % 16.9 % (24.0-44.0); MEAN CORPUSCULAR HEMOGLOBIN 31.6 pg (27.0-33.0); MEAN CORPUSCULAR HGB CONC 32.2 g/dl (32.0-36.5); MEAN CORPUSCULAR VOLUME 98.1 fl (80.0-96.0); MONO # 0.4 K/mm3 (0.0-0.8); MONO % 6.5 % (0.0-5.0); NEUTROPHILS # 4.3 K/mm3 (1.8-7.7); PLATELET COUNT, AUTOMATED 286 k/mm3 (150-450); RED CELL DISTRIBUTION WIDTH 12.5 % (11.5-14.5); WHITE BLOOD COUNT 6.5 K/mm3 (4.0-10.0)
[2016-09-07 06:00] VITALS: BP 131/85
[2016-09-07 06:06] LABS: ANION GAP 8 MEQ/L (8-16); BLOOD UREA NITROGEN 14 MG/DL (7-18); CARBON DIOXIDE LEVEL 29 MEQ/L (21-32); CHLORIDE LEVEL 105 MEQ/L (98-107); CREATININE FOR GFR 0.81 MG/DL (0.70-1.30); GLOMERULAR FILTRATION RATE > 60.0 (>56); GLUCOSE, FASTING 98 MG/DL (70-105); POTASSIUM SERUM 4.1 MEQ/L (3.5-5.1); SODIUM LEVEL 142 MEQ/L (136-145)
[2016-09-07] MEDS: PANTOPRAZOLE 40MG INJ (PROTONIX) (C9113) IV SCH (08:47)
[2016-09-07] MEDS: SENOKOT S TAB PO SCH (08:47)
[2016-09-07 14:00] VITALS: BP 143/90
[2016-09-07] MEDS: PERCOCET 5MG/325MG TAB PO PRN ×2 (15:43→21:00)
[2016-09-07 22:00] VITALS: BP 140/83
[2016-09-08 06:00] VITALS: BP 130/80
[2016-09-08 06:29] LABS: BASO % 0.4 % (0.0-1.0); EOS # 0.4 K/mm3 (0.0-0.50); EOS % 5.7 % (0.0-3.0); LARGE UNSTAINED CELL # 0.2 K/mm3 (0.0-0.4); LARGE UNSTAINED CELL % 2.3 % (0.0-4.0); LYMPH # 1.3 K/mm3 (1.5-4.5); LYMPH % 16.3 % (24.0-44.0); MEAN CORPUSCULAR HEMOGLOBIN 31.9 pg (27.0-33.0); MEAN CORPUSCULAR HGB CONC 32.3 g/dl (32.0-36.5); MEAN CORPUSCULAR VOLUME 98.8 fl (80.0-96.0); MONO # 0.8 K/mm3 (0.0-0.8); MONO % 10.9 % (0.0-5.0); NEUTROPHILS # 4.7 K/mm3 (1.8-7.7); NEUTROPHILS % 64.5 % (36.0-66.0); PLATELET COUNT, AUTOMATED 344 k/mm3 (150-450); RED CELL DISTRIBUTION WIDTH 12.9 % (11.5-14.5); WHITE BLOOD COUNT 7.2 K/mm3 (4.0-10.0)
[2016-09-08 06:32] LABS: ANION GAP 6 MEQ/L (8-16); BLOOD UREA NITROGEN 14 MG/DL (7-18); CALCIUM LEVEL 8.4 MG/DL (8.5-10.1); CARBON DIOXIDE LEVEL 32 MEQ/L (21-32); CHLORIDE LEVEL 103 MEQ/L (98-107); CREATININE FOR GFR 0.95 MG/DL (0.70-1.30); GLOMERULAR FILTRATION RATE > 60.0 (>56); GLUCOSE, FASTING 94 MG/DL (70-105); POTASSIUM SERUM 4.6 MEQ/L (3.5-5.1); SODIUM LEVEL 141 MEQ/L (136-145)
[2016-09-08] MEDS ORDERED: PERCOCET PO (09:12)
[2016-09-08] MEDS: PANTOPRAZOLE 40MG INJ (PROTONIX) (C9113) IV SCH (09:50)
[2016-09-08] MEDS: SENOKOT S TAB PO SCH (09:50)
--- NOTE | 2016-10-01 11:49 | DSES ---
DATE OF ADMISSION: 08/28/2016 DATE OF DISCHARGE: 09/08/2016 DISCHARGE DIAGNOSIS: Large bowel obstruction secondary to diverticular stricture, status post low anterior resection and colostomy and Lars pouch. DISCHARGE MEDICATIONS: Include: - oxycodone/acetaminophen 5/325 mg tablet, 1-2 tablets every 4 hours as needed for pain - colostomy supplies as ordered DISCHARGE INSTRUCTIONS: 1. Diet: Low-residue diet. 2. Activity: Activity as tolerated. 3. Wound care: The patient may shower, pat incision dry. May keep incision open to air. 4. Replace ostomy, flush as needed. 5. Followup in clinic in 2 weeks. HOSPITAL COURSE: Mr. Moran is a 61-year-old gentleman who presented to the emergency department with inability to pass flatus, bloating, and feeling of obstipation. This has been going on, on and off, for several months. It has worsened. He was found to have evidence for large bowel obstruction. He was admitted under my care, placed on antibiotics, on ciprofloxacin and metronidazole for possible diverticulitis as the cause of the obstruction. He was advised need for surgery. He was scheduled for a colon resection, initially attempted laparoscopic; but due to the amount of distention, converted to an open surgery, underwent low anterior resection and colostomy and Lars pouch creation. He did well from the surgery. His postoperative course is relatively uneventful. He had a period of ileus that resolved at about the second or third day. He was started on clear liquids and advanced to a regular diet. On discharge, he is ambulating well. He has minimal pain. He has been taught how to take care of his colostomy, and he feels comfortable with it on discharge.
== END 2016-09-08 16:00 | disposition home or self-care (01) | DRG 221 ==
LOC: M ED 11:17 → M ED INP 15:44 → EDSEX 15:44 → M MSPAV 17:07
PROVIDERS: ADMIT Surgery; ATTEND Surgery
PROC: 0D1N0J4 Bypass Sigmoid Colon to Cutaneous with Synthetic Substitute, Open Approach (ICD-10-PCS; 2016-09-01)
PROC: 0DTN0ZZ Resection of Sigmoid Colon, Open Approach (ICD-10-PCS; principal; 2016-09-01 07:30)
DX: K56.69 Other intestinal obstruction (principal); R18.8 Other ascites; E86.0 Dehydration; K57.30 Diverticulosis of large intestine without perforation or abscess without bleeding; Z87.891 Personal history of nicotine dependence

== ENCOUNTER → 2016-10-20 | Outpatient (CLI) | payer BC, MEDICAID ==
[~2016-10-20] MED LIST: PERCOCET PO; no medications
[2016-10-20 16:08] LABS: MEAN CORPUSCULAR HEMOGLOBIN 32.8 pg (27.0-33.0); MEAN CORPUSCULAR HGB CONC 32.5 g/dl (32.0-36.5); RED CELL DISTRIBUTION WIDTH 12.8 % (11.5-14.5); WHITE BLOOD COUNT 6.5 K/mm3 (4.0-10.0)
[2016-10-20 16:21] LABS: ALBUMIN 3.8 GM/DL (3.2-5.2); ALBUMIN/GLOBULIN RATIO 1.27 (1.00-1.93); ALKALINE PHOSPHATASE 73 U/L (45-117); ALT/SGPT 28 U/L (12-78); ANION GAP 5 MEQ/L (8-16); AST/SGOT 20 U/L (15-37); BILIRUBIN,TOTAL 0.3 MG/DL (0.2-1.0); BLOOD UREA NITROGEN 19 MG/DL (7-18); CALCIUM LEVEL 9.1 MG/DL (8.5-10.1); CARBON DIOXIDE LEVEL 32 MEQ/L (21-32); CHLORIDE LEVEL 103 MEQ/L (98-107); CREATININE FOR GFR 0.91 MG/DL (0.70-1.30); GLOMERULAR FILTRATION RATE > 60.0 (>56); GLUCOSE, FASTING 105 MG/DL (70-105); POTASSIUM SERUM 4.7 MEQ/L (3.5-5.1); SODIUM LEVEL 140 MEQ/L (136-145); TOTAL PROTEIN 6.8 GM/DL (6.4-8.2)
== END ==
LOC: M LAB 15:18
PROVIDERS: ATTEND Surgery
DX: K57.32 Diverticulitis of large intestine without perforation or abscess without bleeding (principal); K56.69 Other intestinal obstruction

== ENCOUNTER → 2016-10-22 | Outpatient (CLI) | payer BC, MEDICAID ==
[~2016-10-22] VITALS: Ht 172.7 cm; Wt 63.0 kg
[~2016-10-22] MED LIST changes: +LIDOCAINE 2% INJ 100 MG/5 ML SDV (FOR ANES.) As Ordered ONE; +NS 1,000 ML IV SCH; +PROPOFOL 200 MG/20 ML VIAL As Ordered ONE
--- NOTE | 2016-10-22 15:44 | ROOR ---
Patient Name: Sylvain Moran Procedure Date: 10/22/2016 3:10 PM Date of : 1955 Age: 61 Room: [facility] Gender: Male Note Status: Finalized Procedure: Colonoscopy Indications: Preoperative assessment, Diverticula Providers: Elver Emmanuel MD Referring MD: Elver Emmanuel MD Requesting Provider: Medicines: Monitored Anesthesia Care Complications: No immediate complications. Estimated blood loss: Minimal. Procedure: Pre-Anesthesia Assessment: - Prior to the procedure, a History and Physical was performed, and patient medications and allergies were reviewed. The patient is competent. The risks and benefits of the procedure and the sedation options and risks were discussed with the patient. All questions were answered and informed consent was obtained. Patient identification and proposed procedure were verified by the physician, the nurse and the can line examiner in the endoscopy suite. Mental Status Examination: alert and oriented. Airway Examination: normal oropharyngeal airway and neck mobility. Respiratory Examination: clear to auscultation. CV Examination: normal. Prophylactic Antibiotics: The patient does not require prophylactic antibiotics. Prior Anticoagulants: The patient has taken no previous anticoagulant or antiplatelet agents. ASA Grade Assessment: II - A patient with mild systemic disease. After reviewing the risks and benefits, the patient was deemed in satisfactory condition to undergo the procedure. The anesthesia plan was to use monitored anesthesia care (MAC). Immediately prior to administration of medications, the patient was re-assessed for adequacy to receive sedatives. The heart rate, respiratory rate, oxygen saturations, blood pressure, adequacy of pulmonary ventilation, and response to care were monitored throughout the procedure. The physical status of the patient was re-assessed after the procedure. The Colonoscope was introduced through the anus and advanced to the cecum, identified by appendiceal orifice and ileocecal valve. The Colonoscope was introduced through the and advanced to. The colonoscopy was performed with moderate difficulty due to bowel stenosis. Successful completion of the procedure was aided by withdrawing the scope and replacing with the pediatric endoscope. The patient tolerated the procedure well. The quality of the bowel preparation was good. Findings: The perianal and digital rectal examinations were normal. rectal stump, healthy, some remaining diverticulosis - scope up to 20 cms, Estimated blood loss: none. A benign-appearing, intrinsic moderate stenosis measuring 1 cm (in length) x 1.4 cm (inner diameter) was found at the splenic flexure and was traversed with a pedi-pedi scope, not traversed with regular pediatric scope. Biopsies were taken with a cold forceps for histology. Estimated blood loss was minimal. The exam was otherwise without abnormality. Impression: - Stricture at the splenic flexure. Biopsied. - The examination was otherwise normal. Recommendation: - Discharge patient to home (ambulatory). - High fiber diet. - Return to my office in 2 weeks. Elver Emmanuel MD Elver Emmanuel MD 10/22/2016 3:43:38 PM This report has been signed electronically. Number of Addenda: 0 Note Initiated On: 10/22/2016 3:10 PM Estimated Blood Loss: Estimated blood loss was minimal.
[2016-10-22 16:05] VITALS: BP 132/71
== END | disposition home or self-care (01) ==
LOC: M OPP 13:59
PROVIDERS: ATTEND Surgery
DX: Z09 Encounter for follow-up examination after completed treatment for conditions other than malignant neoplasm (principal); K56.60 Unspecified intestinal obstruction; K57.30 Diverticulosis of large intestine without perforation or abscess without bleeding; F17.210 Nicotine dependence, cigarettes, uncomplicated; Z98.0 Intestinal bypass and anastomosis status

== ENCOUNTER 2016-12-08 08:45 | Inpatient (IN) | payer BC, MEDICAID ==
[2016-12-08] VITALS (7 sets, daily range): BP systolic 122–163; BP diastolic 68–81
[~2016-12-08] VITALS: Ht 172.7 cm; Wt 66.0 kg
[~2016-12-08 08:45] MED LIST changes: +MIDAZOLAM INJ 2 MG/2 ML VIAL (J2250) As Ordered ONE; -NS 1,000 ML IV SCH; +ROCURONIUM BROMIDE 50 MG/5 ML VIAL As Ordered ONE; +fentaNYL 250 MCG/5 ML INJECTION (J3010) As Ordered ONE
[2016-12-08] MEDS ORDERED: LR 1,000 ML IV ONE (09:00)
[2016-12-08] MEDS ORDERED: ALVIMOPAN 12 MG CAPSULE (ENTEREG) PO ONE (09:00)
[2016-12-08] MEDS ORDERED: LR 1,000 ML IV SCH ×2 (09:00→16:15)
[2016-12-08] MEDS ORDERED: ERTAPENEM SODIUM 1 GM in NS MINI-BAG PLUS 50 ML IV ONE (09:00)
[2016-12-08] MEDS ORDERED: BUPIVACAINE HCL 0.25% 30 ML VIAL As Ordered ONE ×2 (09:59→14:15)
[2016-12-08] MEDS ORDERED: LIDOCAINE 1% SDV INJ 30 ML VIAL As Ordered ONE (09:59)
[2016-12-08] MEDS ORDERED: MIDAZOLAM INJ 2 MG/2 ML VIAL (J2250) As Ordered ONE (11:56)
[2016-12-08] MEDS ORDERED: PROPOFOL 200 MG/20 ML VIAL As Ordered ONE (11:56)
[2016-12-08] MEDS ORDERED: ePHEDrine SULFATE 25 MG/5 ML(5MG/ML) SYRINGE As Ordered ONE (12:02)
[2016-12-08] MEDS ORDERED: ROCURONIUM BROMIDE 50 MG/5 ML VIAL As Ordered ONE ×2 (12:17→14:25)
[2016-12-08] MEDS ORDERED: NEOSTIGMINE 1MG/ML 5 ML SYRINGE (J2710) As Ordered ONE (12:36)
[2016-12-08] MEDS ORDERED: ONDANSETRON 4MG/2ML VIAL (J2405) As Ordered ONE (12:36)
[2016-12-08] MEDS ORDERED: dexameTHASONE 4 MG/ML 1ML VIAL (J1100) As Ordered ONE (12:36)
[2016-12-08] MEDS ORDERED: HYDROmorphone HCL 2 MG/ML 1ML VIAL (J1170) As Ordered ONE (12:37)
[2016-12-08] MEDS ORDERED: SEVOFLURANE INHAL SOLN 250 ML BTL As Ordered ONE (12:54)
[2016-12-08] MEDS ORDERED: BUPIVACAINE LIPOSOME/PF 1.3% 20 ML VIAL (13.3MG/ML)(EXPAREL) As Ordered ONE (14:15)
[2016-12-08] MEDS ORDERED: MORPHINE 4 MG/ML 1ML SYRINGE IV PRN (15:45)
[2016-12-08] MEDS ORDERED: ONDANSETRON 4MG/2ML VIAL (J2405) IV PRN ×3 (15:45→21:15)
[2016-12-08] MEDS ORDERED: KETOROLAC 30 MG/ML VIAL (J1885) IV PRN (15:45)
[2016-12-08] MEDS ORDERED: ACETAMINOPHEN TAB 650MG DOSE (2X325MG) PO PRN (15:45)
[2016-12-08] MEDS ORDERED: NORCO, ANEXSIA 5/325MG TABLET (HYDROcodone/ACETAMINOPHEN) PO PRN ×2 (15:45)
[2016-12-08] MEDS ORDERED: fentaNYL 100 MCG/2 ML INJECTION (J3010) IV PRN (16:15)
[2016-12-08] MEDS ORDERED: PERCOCET 5MG/325MG TAB PO PRN ×2 (16:15→23:15)
[2016-12-08] MEDS ORDERED: MEPERIDINE INJ 25 MG/ML VIAL (J2175) IV PRN (16:15)
[2016-12-08] MEDS ORDERED: METOCLOPRAMIDE INJ 10MG/2ML VIAL (J2765) IV PRN (16:15)
[2016-12-08] MEDS: LR 1,000 ML IV SCH ×2 (18:27→23:31)
[2016-12-08] MEDS: ENOXAPARIN 40 MG/0.4 ML SYRINGE (J1650) SC SCH (19:16)
[2016-12-08] MEDS: SENOKOT S TAB PO SCH (20:10)
[2016-12-08] MEDS ORDERED: MORPHINE 1MG/ML IN 0.9% NACL 100ML IV BAG IV PRN (21:15)
[2016-12-08] MEDS ORDERED: NS 1,000 ML IV SCH (21:15)
[2016-12-08] MEDS ORDERED: EPIDURAL/PCA KEYS XX PRN (21:15)
[2016-12-08] MEDS ORDERED: NALBUPHINE HCL 10 MG/ML AMP (J2300) IV PRN (21:15)
[2016-12-08] MEDS ORDERED: NALOXONE INJ 0.4 MG/1 ML VIAL (J2310) IV PRN (21:15)
[2016-12-08] MEDS ORDERED: diphenhydrAMINE INJ 50MG/ML VIAL (J1200) IV PRN (21:15)
[2016-12-09] MEDS: PERCOCET 5MG/325MG TAB PO PRN ×6 (00:35→20:39)
[2016-12-09 04:00] VITALS: BP 126/76
[2016-12-09 07:17] LABS: MEAN CORPUSCULAR HEMOGLOBIN 33.2 pg (27.0-33.0); MEAN CORPUSCULAR HGB CONC 33.5 g/dl (32.0-36.5); MEAN CORPUSCULAR VOLUME 99.3 fl (80.0-96.0); RED CELL DISTRIBUTION WIDTH 13.5 % (11.5-14.5); WHITE BLOOD COUNT 14.7 K/mm3 (4.0-10.0)
[2016-12-09 07:41] LABS: ANION GAP 7 MEQ/L (8-16); BLOOD UREA NITROGEN 19 MG/DL (7-18); CALCIUM LEVEL 8.1 MG/DL (8.5-10.1); CARBON DIOXIDE LEVEL 27 MEQ/L (21-32); CHLORIDE LEVEL 104 MEQ/L (98-107); CREATININE FOR GFR 1.22 MG/DL (0.70-1.30); GLOMERULAR FILTRATION RATE > 60.0 (>56); GLUCOSE, FASTING 131 MG/DL (70-105); POTASSIUM SERUM 4.4 MEQ/L (3.5-5.1); SODIUM LEVEL 138 MEQ/L (136-145)
[2016-12-09 08:00] VITALS: BP 122/67
[2016-12-09] MEDS: SENOKOT S TAB PO SCH ×2 (08:29→20:38)
[2016-12-09] MEDS: LR 1,000 ML IV SCH ×2 (08:29→17:59)
[2016-12-09] MEDS: ENOXAPARIN 40 MG/0.4 ML SYRINGE (J1650) SC SCH (08:29)
[2016-12-09 12:00] VITALS: BP 108/71
[2016-12-09 16:00] VITALS: BP 122/73
[2016-12-09 20:00] VITALS: BP 114/78
[2016-12-10] MEDS: PERCOCET 5MG/325MG TAB PO PRN ×6 (00:26→21:02)
[2016-12-10 04:00] VITALS: BP 134/85
[2016-12-10 08:00] VITALS: BP 133/89
[2016-12-10] MEDS: SENOKOT S TAB PO SCH ×2 (09:12→20:55)
[2016-12-10] MEDS: ENOXAPARIN 40 MG/0.4 ML SYRINGE (J1650) SC SCH (09:21)
[2016-12-10] MEDS ORDERED: SLF 3 ML SYR IV PRN (09:45)
[2016-12-10 12:00] VITALS: BP 141/85
[2016-12-10] MEDS: SLF 3 ML SYR IV SCH ×2 (13:31→21:09)
[2016-12-10 16:00] VITALS: BP 133/86
[2016-12-10 20:00] VITALS: BP 150/91
[2016-12-10] MEDS: NEOSPORIN TOP OINT 15GM TOP SCH (20:56)
[2016-12-11] VITALS: BP 152/96
[2016-12-11] MEDS: PERCOCET 5MG/325MG TAB PO PRN ×6 (01:07→21:03)
[2016-12-11 04:00] VITALS: BP 120/73
[2016-12-11] MEDS: SLF 3 ML SYR IV SCH ×3 (06:00→22:00)
[2016-12-11 07:11] LABS: MEAN CORPUSCULAR HEMOGLOBIN 33.4 pg (27.0-33.0); MEAN CORPUSCULAR HGB CONC 33.7 g/dl (32.0-36.5); MEAN CORPUSCULAR VOLUME 99.2 fl (80.0-96.0); RED CELL DISTRIBUTION WIDTH 13.2 % (11.5-14.5); WHITE BLOOD COUNT 8.2 K/mm3 (4.0-10.0)
[2016-12-11 07:30] LABS: ANION GAP 5 MEQ/L (8-16); BLOOD UREA NITROGEN 12 MG/DL (7-18); CALCIUM LEVEL 8.4 MG/DL (8.5-10.1); CARBON DIOXIDE LEVEL 30 MEQ/L (21-32); CHLORIDE LEVEL 103 MEQ/L (98-107); CREATININE FOR GFR 0.92 MG/DL (0.70-1.30); GLOMERULAR FILTRATION RATE > 60.0 (>56); GLUCOSE, FASTING 96 MG/DL (70-105); POTASSIUM SERUM 4.1 MEQ/L (3.5-5.1); SODIUM LEVEL 138 MEQ/L (136-145)
[2016-12-11 08:00] VITALS: BP 138/90
[2016-12-11] MEDS: SENOKOT S TAB PO SCH ×2 (08:59→21:03)
[2016-12-11] MEDS: NEOSPORIN TOP OINT 15GM TOP SCH ×2 (09:00→21:04)
[2016-12-11] MEDS: ENOXAPARIN 40 MG/0.4 ML SYRINGE (J1650) SC SCH (09:01)
[2016-12-11 16:00] VITALS: BP 145/85
[2016-12-11 17:30] VITALS: BP 146/84
[2016-12-11 20:00] VITALS: BP 139/87
[2016-12-12] VITALS: BP 125/78
[2016-12-12] MEDS: PERCOCET 5MG/325MG TAB PO PRN ×4 (01:26→14:28)
[2016-12-12 04:00] VITALS: BP 135/74
[2016-12-12] MEDS: SLF 3 ML SYR IV SCH ×2 (06:00→14:31)
[2016-12-12 08:00] VITALS: BP 135/86
[2016-12-12] MEDS: SENOKOT S TAB PO SCH (09:07)
[2016-12-12] MEDS: ENOXAPARIN 40 MG/0.4 ML SYRINGE (J1650) SC SCH (09:07)
[2016-12-12] MEDS: NEOSPORIN TOP OINT 15GM TOP SCH (09:08)
[2016-12-12 12:00] VITALS: BP 145/89
[2016-12-12 16:00] VITALS: BP 139/88
[2016-12-12] MEDS ORDERED: PERCOCET PO (17:04)
--- NOTE | 2017-01-06 11:46 | RO ---
DATE OF PROCEDURE: 12/08/2016 PREOPERATIVE DIAGNOSIS: Attention to colostomy, history of colon stricture from diverticulitis. POSTOPERATIVE DIAGNOSIS: Attention to colostomy, history of colon stricture from diverticulitis. PROCEDURES DONE: 1. Laparoscopic converted to open reversal of colostomy. 2. Laparoscopic lysis of adhesion. 3. Laparoscopic takedown of splenic flexure. 4. Resection of colon stricture at the splenic flexure. 5. Ileorectal anastomosis. SURGEON: Elver Emmanuel MD MEDICAL ASSISTANT DERMATOLOGY: Ronald Maurice MD ANESTHESIA: General anesthesia. ESTIMATED BLOOD LOSS: 50 mL. COMPLICATIONS: None. DRAINS: A 19 Bowen drain left in the pelvis. DESCRIPTION OF PROCEDURE: Procedure note: Mr. Moran is a patient of mine. He is 61 years old. He had presented earlier with a colon obstruction for what appears to be a stricture. This turned out to be diverticular in origin. He underwent a low anterior resection with an end colostomy. He is being brought here today to reverse said colostomy. The patient received Invanz preoperatively for prophylaxis. The night prior, he had a bowel prep. He was brought to the operating room, placed supine on the table. General endotracheal anesthesia started without any complication. He was placed in Jose Carlos stirrups in the lithotomy position. His abdomen and perineal area prepped and draped in the usual sterile fashion. Nair catheter was placed for urine output monitoring. After surgical time-out, we began our surgery. Entry to abdomen done through a small incision in the left upper quadrant area. A Veress needle inserted. CO2 insufflation started at a pressure of 50 mmHg. Using the same incision, a 5-mm port was placed under direct vision of laparoscope. On entry to the abdomen, was noticeable a large amount of bowel and omental adhesions onto the anterior abdominal wall, as well as onto the pelvis. We started by placing a 5 mm port in the left lower quadrant area using laparoscopic scissors. We slowly took down adhesions at the midline starting at the upper abdomen. When there was enough window created to visualize the right side, another 5-mm port was placed over the right side of the abdomen. We continued taking down the adhesions right around the umbilical area, especially that of small bowel adhesions. Once we have created enough spaces around the umbilicus, a 12-mm port was placed over this area. The patient was placed on a steep Trendelenburg position. Using these ports, we then started taking down the pelvic adhesions involving the bowel and the omentum. Despite multiple attempts, there was a lot of difficulty taking all of the bowels out of the pelvis with difficulty visualizing the rectal stump. We continued for about an hour or more doing this once we have mostly mobilized the small bowel. He was placed on a steep Trendelenburg position. We started working on finding where the previously-marked area of a colonic stricture. This was located just after the splenic flexure. We continued working on the splenic flexure, starting medially at the transverse colon, taking down the gastrocolic ligament, going underneath the lesser sac, and taking down the posterior adhesions of the splenic flexure going towards the spleen. The adhesions towards the spleen, diaphragm, and left side were likewise taken down, continuing this dissection by repositioning the patient, taking down the lateral and posterior adhesions of the descending colon from the Gerota fascia and lateral abdominal wall. At this point, we have fully dissected down the splenic flexure, and it felt like I have an adequate give from the descending colon to perform anastomosis. We ended the laparoscopy part in this area. An incision was then created around the colostomy. The colostomy was dissected free from surrounding structures until we reached the fascia. The fascia was partially opened up, and we circumferentially freed up the colostomy to be able to lift this out of the abdomen. I continued to pull up to try and see if I could reach the previously-marked stricture over this area. Unfortunately, it only reach as far as the fascia, and we could not fully mobilize further. At this point, I decided to continue the procedure by making the vertical midline incision around the umbilicus and extending this enough that we could pull the left side of the colon through our midline incision. The colostomy was placed into the abdomen and pulled out into the midline incision. We were able to reach the colon stricture. This was more than a foot away from the colostomy and only about 5 cm where I can feel the thickening. I decided then to make a small resection and make an anastomosis. The strictured part of the colon was resected using Coupland 60 mm rocyk. The mesentery was divided with the LigaSure device. Using a 25 mm EEA stapler, anastomosis was created. I reinforced the staple line with three sutures of 3-0 silk in a Lembert fashion. The mesentery was reapproximated with a running suture of 3-0 Vicryl. Upon completing this, we turned our attention to the end colostomy. A bowel clamp was placed. Proximal to this, the colostomy site where there were still some thickening and scarring was removed to a healthy area. Due to the size of the colon being small, a 25-mm EEA stapler was also likewise chosen. The anvil was secured into the end of the stump using 3-0 Prolene in a pursestring fashion. This was cinched tightly. The surrounding fatty tissue was dissected free from the anticipated staple line. This was replaced back into the abdomen. There was still some posterior adhesions that were tethering the colon superiorly and laterally, and we worked on taking this down further by enlarging the superior part of the adhesion. The leftover pelvic adhesions of small bowel was further released exposing the distal stump. The surrounding scar, as well as the area was likewise released to give some length to our distal stump. Once this was fully done, I came down into the patient's rectum. The length of the rectal stump was tested using an EEA sizer. Once we have seen that the length on both ends are adequate, the EEA stapler was passed transrectally and came through anterior to the taenia of the rectal stump. The anvil and stump was placed together and engaged and tightened and fired. The colostomy doughnuts was inspected and noted to be intact. I used a flexible sigmoidoscope to evaluate the staple line, noted this to be healthy. No bleeding internally. This was tested under submerged under water and no leakage noted. At this point, I changed back, irrigated the pelvis, left a 19 Bowen drain in the pelvis close to the anastomosis, and closed our incisions with one polydioxanone suture (PDS) in a running fashion. The colostomy site was closed with 0 PDS in a running fashion. Staple lines were placed to close the skin, more loosely on the colostomy site. The patient was then promptly awakened, extubated, brought to the recovery room stable.
--- NOTE | 2017-01-06 19:52 | DSES ---
DATE OF ADMISSION: 12/08/2016 DATE OF DISCHARGE: 12/12/2016 DISCHARGE DIAGNOSES 1. Tension to colostomy with colostomy reversal. 2. Colon stricture at the splenic flexure, status post resection with anastomosis. 3. History of diverticular disease with stricture. CONDITION ON DISCHARGE: Improved. Patient is having normal bowel functions. DISCHARGE MEDICATIONS: - Percocet 5/325 mg per tablet, 1-2 tablets every 4 hours as needed for pain, prescription given for 60 tablets. DISCHARGE INSTRUCTIONS: 1. Diet: Regular as tolerated, 2. Activities: Light activity until evaluated by me in two weeks' time. 3. Wound care: Patient may shower, may leave incisions open to air. 4. Watch out for wound erythema and drainage. Report any fevers or chills or severe abdominal pain. SUMMARY OF HOSPITAL COURSE: Mr. Moran is a 61-year-old a gentleman who had prior history of colon stricture with resulting bowel obstruction. He had low anterior resection and colostomy placed. He has recovered from this. He was brought back electively to reverse his colostomy. As part of the workup, he underwent a colonoscopy. He was found to have a significant stricture at about the splenic flexure. During the surgery, this area of stricture was resected. The patient did well during the surgery perioperatively, was recovered pretty straight forward. No complications noted during the recovery. He was started on clear liquids just about postoperative day one. He tolerated this and once there was adequate bowel function. It was advanced to regular diet, which he tolerated. His initial white cell count was 14.7. This was repeated on postoperative day three was normal. He did not have any febrile episodes. He starting having regular bowel movements at postoperative day number three. He had a drain that was putting out anywhere between 150-200 mL of serous fluid. This was discontinued the day before discharge. Patient is scheduled to follow up with me postoperatively in two weeks' time for removal of rocky.
== END 2016-12-12 17:30 | disposition home or self-care (01) | DRG 221 ==
LOC: M OR 08:45 → M PED 17:43
PROVIDERS: ADMIT Surgery; ATTEND Surgery
PROC: 0DN84ZZ Release Small Intestine, Percutaneous Endoscopic Approach (ICD-10-PCS; 2016-12-08)
PROC: 0DNE4ZZ Release Large Intestine, Percutaneous Endoscopic Approach (ICD-10-PCS; 2016-12-08)
PROC: 0DBL0ZZ Excision of Transverse Colon, Open Approach (ICD-10-PCS; 2016-12-08)
PROC: 0DN80ZZ Release Small Intestine, Open Approach (ICD-10-PCS; 2016-12-08)
PROC: 0DBM4ZZ Excision of Descending Colon, Percutaneous Endoscopic Approach (ICD-10-PCS; principal; 2016-12-08 11:30)
DX: Z43.3 Encounter for attention to colostomy (principal); K56.69 Other intestinal obstruction; K57.30 Diverticulosis of large intestine without perforation or abscess without bleeding; K66.0 Peritoneal adhesions (postprocedural) (postinfection)

== ENCOUNTER 2019-06-15 12:38 | Day surgery (SDC) | payer OTHER ==
[~2019-06-15] VITALS: Ht 172.7 cm; Wt 65.3 kg
[~2019-06-15 12:38] MED LIST changes: -LIDOCAINE 2% INJ 100 MG/5 ML SDV (FOR ANES.) As Ordered ONE; -MIDAZOLAM INJ 2 MG/2 ML VIAL (J2250) As Ordered ONE; +NS 1,000 ML IV ONE; -PROPOFOL 200 MG/20 ML VIAL As Ordered ONE; -ROCURONIUM BROMIDE 50 MG/5 ML VIAL As Ordered ONE; -fentaNYL 250 MCG/5 ML INJECTION (J3010) As Ordered ONE
[2019-06-15] MEDS ORDERED: LIDOCAINE 2% INJ 100 MG/5 ML SDV (FOR ANES.) As Ordered ONE (13:49)
[2019-06-15] MEDS ORDERED: PROPOFOL 200 MG/20 ML VIAL As Ordered ONE (13:49)
--- NOTE | 2019-06-15 14:05 | ROOR ---
Patient Name: Sylvain Moran Procedure Date: 06/15/2019 1:43 PM Date of : 1955 Age: 64 Room: [facility] Gender: Male Note Status: Finalized Procedure: Colonoscopy Indications: Screening for colorectal malignant neoplasm Providers: Elver Emmanuel MD Referring MD: 1. No Referring Physician 1. No Referring Physician, Admin. Requesting Provider: Medicines: Monitored Anesthesia Care Complications: No immediate complications. Procedure: Pre-Anesthesia Assessment: - Prior to the procedure, a History and Physical was performed, and patient medications and allergies were reviewed. The patient is competent. The risks and benefits of the procedure and the sedation options and risks were discussed with the patient. All questions were answered and informed consent was obtained. Patient identification and proposed procedure were verified by the physician, the nurse and the director of sustainability in the endoscopy suite. Mental Status Examination: alert and oriented. Airway Examination: normal oropharyngeal airway and neck mobility. Respiratory Examination: clear to auscultation. CV Examination: normal. Prophylactic Antibiotics: The patient does not require prophylactic antibiotics. Prior Anticoagulants: The patient has taken no previous anticoagulant or antiplatelet agents. ASA Grade Assessment: II - A patient with mild systemic disease. After reviewing the risks and benefits, the patient was deemed in satisfactory condition to undergo the procedure. The anesthesia plan was to use monitored anesthesia care (MAC). Immediately prior to administration of medications, the patient was re-assessed for adequacy to receive sedatives. The heart rate, respiratory rate, oxygen saturations, blood pressure, adequacy of pulmonary ventilation, and response to care were monitored throughout the procedure. The physical status of the patient was re-assessed after the procedure. The Colonoscope was introduced through the anus and advanced to the cecum, identified by appendiceal orifice and ileocecal valve. The colonoscopy was somewhat difficult due to post-surgical anatomy. The patient tolerated the procedure well. The quality of the bowel preparation was good. Findings: The perianal and digital rectal examinations were normal. Two colo-colic anastomosis visualized and both were traversed easily at 40 cms and 20 cms from the anal verge. Both are healthy, no significant scarring or inflammation, no stricturing or narrowing. Estimated blood loss: none. The entire examined colon appeared normal on direct and retroflexion views. Impression: - The entire examined colon is normal on direct and retroflexion views. - No specimens collected. Recommendation: - Discharge patient to home (ambulatory). - Repeat colonoscopy in 10 years for screening purposes. Elver Emmanuel MD Elver Emmanuel MD 06/15/2019 2:05:12 PM Electronically signed by Elver Emmanuel MD Number of Addenda: 0 Note Initiated On: 06/15/2019 1:43 PM Estimated Blood Loss: Estimated blood loss: none.
[2019-06-15 14:22] VITALS: BP 124/82
[2019-06-16] MEDS ORDERED: SIMETHICONE 40MG/0.6ML DROPS 30ML As Ordered ONE (06:54)
== END 2019-06-15 14:39 | disposition home or self-care (01) ==
LOC: M OPP 12:38
PROVIDERS: ATTEND Surgery
DX: Z12.11 Encounter for screening for malignant neoplasm of colon (principal); F17.210 Nicotine dependence, cigarettes, uncomplicated; Z93.3 Colostomy status

== ENCOUNTER → 2021-11-15 | Outpatient (CLI) | payer OTHER ==
[~2021-11-15] MED LIST changes: -NS 1,000 ML IV ONE
== END ==
LOC: M PLARAD 07:56
DX: G43.909 Migraine, unspecified, not intractable, without status migrainosus (principal); X32 Exposure to sunlight